=== PATIENT | male | born 1950 | race Caucasian/White ===

== ENCOUNTER 2022-05-28 15:59 | Inpatient (IN) | payer OTHER ==
[~2022-05-28] VITALS: Ht 167.6 cm; Wt 108.5 kg
[2022-05-28 16:16] VITALS: BP_SYST 134
[2022-05-28] MEDS ORDERED: VANCOMYCIN HCL 1,000 MG in NS 250 ML IV ONE (19:15)
[2022-05-28] MEDS ORDERED: NACL 0.9% 1,000 ML IV ONE (19:15)
--- NOTE | 2022-05-28 19:30 | NUR ---
Received report from JOANNA Rodriguez
[2022-05-28 19:44] LABS: BASOPHILS % (AUTO) 0.7 % (0.0-2.0); EOSINOPHILS # (AUTO) 0.1 K/uL (0.0-0.4); EOSINOPHILS % (AUTO) 2.9 % (0.0-4.0); HEMATOCRIT 35.9 % (36-54); HEMOGLOBIN 12.1 g/dL (14.0-18.0); LYMPHOCYTES % (AUTO) 20.8 % (20.5-51.5); MEAN CORPUSCULAR HEMOGLOBIN 33 pg (27-31); MEAN CORPUSCULAR HGB CONC 34 % (32-36); MEAN CORPUSCULAR VOLUME 97 fL (79.0-98.0); MONOCYTES # (AUTO) 0.5 K/uL (0.0-1.0); MONOCYTES % (AUTO) 9.6 % (1.7-9.3); NEUTROPHILS # (AUTO) 3.2 K/uL (1.8-7.7); PLATELET COUNT (AUTO) 104 K/uL (130-430); RED BLOOD CELL COUNT(AUTO) 3.71 MIL/uL (4.2-6.2); WHITE BLOOD COUNT (AUTO) 4.8 K/uL (4.8-10.8)
[2022-05-28] MEDS ORDERED: VANCOMYCIN HCL 1000 MG/VIAL IV ONE (19:59)
[2022-05-28 20:02] LABS: ANION GAP 7 (5-15); CALCIUM 8.6 mg/dL (8.4-11.0); CHLORIDE 110 mmol/L (98-107); CREATININE 1.12 mg/dL (0.55-1.30); GLUCOSE 96 mg/dL (70-99); UREA NITROGEN, BLOOD 24 mg/dL (8-21)
--- NOTE | 2022-05-28 20:10 | NUR ---
# 22 gauge angiocath placed to LAC. Use of asceptic technique. Opsite placed over site. Blood return noted. Blood for lab drawn from site. Flushed with 10 cc of normal saline. No evidence of infiltration noted. Patient tolerated well.
[2022-05-28 20:19] LABS: ALANINE AMINOTRANSFERASE 17 U/L (12-78); ALBUMIN 3.1 g/dL (3.4-4.8); ASPARTATE AMINOTRANSFERASE 25 U/L (10-37); TOTAL BILIRUBIN 0.9 mg/dL (0.0-1.0)
--- NOTE | 2022-05-28 21:20 | NUR ---
Patient will be admitted to care of [facility]. Admitted to TELE unit. Will go to room 117B. Belongings list completed. Complete and up to date summary report printed. SBAR report to be given at bedside with opportunity for questions.
[2022-05-28] MEDS ORDERED: ATOR20TA64 PO (21:23)
[2022-05-28] MEDS ORDERED: LACT10SO6 (21:23)
[2022-05-28] MEDS ORDERED: CARV6.2554 PO (21:23)
[2022-05-28] MEDS ORDERED: SILD50TA53 PO (21:23)
[2022-05-28] MEDS ORDERED: OMEP20CA15 PO (21:23)
[2022-05-28] MEDS ORDERED: HYDR-3927 PO (21:23)
[2022-05-28] MEDS ORDERED: FURO40TA5 PO (21:23)
[2022-05-28] MEDS ORDERED: AMLO5TAB92 PO (21:23)
[2022-05-28] MEDS ORDERED: ASPI-1155 PO (21:23)
[2022-05-28] MEDS ORDERED: POTA-197 PO (21:23)
[2022-05-28] MEDS ORDERED: PRED10TA PO (21:23)
[2022-05-28] MEDS ORDERED: LISI40TA13 PO (21:23)
[2022-05-28] MEDS ORDERED: METO-540 PO (21:23)
[2022-05-28 21:30] VITALS: BP_SYST 145
[2022-05-28] MEDS ORDERED: INSULIN REGULAR, HUMAN 100 UNITS/ML, 3 ML VIAL (humuLIN R) SUBCUT PRN (22:30)
[2022-05-28] MEDS: ASPIRIN 81 MG TAB.CHEW PO SCH (23:00)
[2022-05-28] MEDS ORDERED: METOPROLOL SUCCINATE 25 MG TAB.SR.24H (TOPROL XL) PO SCH (23:00)
[2022-05-28] MEDS: lisinopriL 20 MG TABLET PO SCH (23:00)
[2022-05-28] MEDS: ATORVASTATIN 20 MG TABLET PO SCH (23:00)
[2022-05-28] MEDS ORDERED: CARVEDILOL 6.25 MG TABLET (COREG) PO SCH (23:00)
[2022-05-28] MEDS: FUROSEMIDE 40 MG TABLET PO SCH (23:00)
[2022-05-28] MEDS: amLODIPine BESYLATE 5 MG TABLET PO SCH (23:00)
[2022-05-28] MEDS ORDERED: SILDENAFIL CITRATE PO SCH (23:00)
--- NOTE | 2022-05-29 03:39 | NUR ---
CONSULTATION PAGED/CALLED Reason for Consultation: CELLULITIS Person Who was Notified: [facility]CY Consulting Physician: BRANT Men'S Basketball Coach Specialty: Ordering Physician: AGUSTÍN CIFUENTES
[2022-05-29] MEDS ORDERED: OMEPRAZOLE Non-Formulary 20 MG CAPSULE.DR PO SCH (09:00)
[2022-05-29] MEDS: POTASSIUM CHLORIDE 20 MEQ TAB.PRT.SR PO SCH (10:30)
[2022-05-29] MEDS: lisinopriL 20 MG TABLET PO SCH (11:14)
[2022-05-29] MEDS: ASPIRIN 81 MG TAB.CHEW PO SCH (11:15)
[2022-05-29] MEDS: PANTOPRAZOLE SODIUM 40 MG TAB PO SCH (11:15)
[2022-05-29] MEDS: ATORVASTATIN 20 MG TABLET PO SCH (11:16)
[2022-05-29] MEDS: amLODIPine BESYLATE 5 MG TABLET PO SCH (11:16)
[2022-05-29] MEDS: HYDROcodone/ACETAMIN 10-325 MG TAB PO PRN ×4 (11:17→22:14)
[2022-05-29] MEDS: FUROSEMIDE 40 MG TABLET PO SCH (11:17)
[2022-05-29] MEDS: VANCOMYCIN HCL 1,000 MG in NS 250 ML IV SCH ×2 (11:40→22:19)
[2022-05-29 12:00] VITALS: BP_SYST 143
[2022-05-29] MEDS: FUROSEMIDE 20 MG/2 ML VIAL IVP SCH ×2 (15:29→22:12)
[2022-05-29 16:07] VITALS: BP_SYST 125
[2022-05-29 20:56] VITALS: BP_SYST 127
[2022-05-30 02:30] VITALS: BP_SYST 122
[2022-05-30] MEDS: FUROSEMIDE 20 MG/2 ML VIAL IVP SCH ×3 (07:09→21:48)
[2022-05-30 08:00] VITALS: BP_SYST 144
[2022-05-30] MEDS: HYDROcodone/ACETAMIN 10-325 MG TAB PO PRN ×4 (08:20→23:48)
[2022-05-30] MEDS: ATORVASTATIN 20 MG TABLET PO SCH (08:21)
[2022-05-30] MEDS: lisinopriL 20 MG TABLET PO SCH (08:21)
[2022-05-30] MEDS: ASPIRIN 81 MG TAB.CHEW PO SCH (08:21)
[2022-05-30] MEDS: PANTOPRAZOLE SODIUM 40 MG TAB PO SCH (08:22)
[2022-05-30] MEDS: POTASSIUM CHLORIDE 20 MEQ TAB.PRT.SR PO SCH (08:22)
[2022-05-30] MEDS: VANCOMYCIN HCL 1,000 MG in NS 250 ML IV SCH ×2 (08:23→20:56)
[2022-05-30 12:00] VITALS: BP_SYST 127
[2022-05-30] MEDS: PIPERACILLIN/TAZO 4.5GM/DEX-IS 100 ML IV SCH ×2 (14:50→23:06)
[2022-05-30 16:00] VITALS: BP_SYST 147
[2022-05-30 20:00] VITALS: BP_SYST 116
[2022-05-30 22:00] LABS: ANION GAP 5 (5-15); CALCIUM 7.8 mg/dL (8.4-11.0); CHLORIDE 108 mmol/L (98-107); CREATININE 1.65 mg/dL (0.55-1.30); GLUCOSE 114 mg/dL (70-99); UREA NITROGEN, BLOOD 23 mg/dL (8-21)
[2022-05-31 04:00] VITALS: BP_SYST 126
[2022-05-31] MEDS: PIPERACILLIN/TAZO 4.5GM/DEX-IS 100 ML IV SCH (06:06)
[2022-05-31] MEDS: FUROSEMIDE 20 MG/2 ML VIAL IVP SCH (06:06)
[2022-05-31] MEDS: HYDROcodone/ACETAMIN 10-325 MG TAB PO PRN ×2 (06:11→12:17)
[2022-05-31 07:00] LABS: BASOPHILS % (AUTO) 0.6 % (0.0-2.0); EOSINOPHILS # (AUTO) 0.2 K/uL (0.0-0.4); EOSINOPHILS % (AUTO) 3.4 % (0.0-4.0); HEMATOCRIT 34.2 % (36-54); HEMOGLOBIN 11.8 g/dL (14.0-18.0); LYMPHOCYTES # (AUTO) 0.8 K/uL (1.0-5.5); LYMPHOCYTES % (AUTO) 17.4 % (20.5-51.5); MEAN CORPUSCULAR HEMOGLOBIN 33 pg (27-31); MEAN CORPUSCULAR HGB CONC 35 % (32-36); MEAN CORPUSCULAR VOLUME 95 fL (79.0-98.0); MONOCYTES # (AUTO) 0.4 K/uL (0.0-1.0); MONOCYTES % (AUTO) 9.4 % (1.7-9.3); NEUTROPHILS # (AUTO) 3.1 K/uL (1.8-7.7); NEUTROPHILS % (AUTO) 69.2 % (40.0-70.0); PLATELET COUNT (AUTO) 86 K/uL (130-430); RED BLOOD CELL COUNT(AUTO) 3.61 MIL/uL (4.2-6.2); RED CELL DISTRIBUTION WIDTH 14.5 % (9.0-15.0); WHITE BLOOD COUNT (AUTO) 4.5 K/uL (4.8-10.8)
[2022-05-31 07:30] LABS: ANION GAP 7 (5-15); CALCIUM 7.9 mg/dL (8.4-11.0); CHLORIDE 107 mmol/L (98-107); CREATININE 1.54 mg/dL (0.55-1.30); GLUCOSE 90 mg/dL (70-99); UREA NITROGEN, BLOOD 21 mg/dL (8-21)
--- NOTE | 2022-05-31 07:30 | NUR ---
OPENING NOTE PT IN BED, RESTING. DENIES ANY PAIN, SOB, OR DISCOMFORT. IV SITE REMAIN INTACT AND PATENT. CALL LIGHT WITHIN REACH. SAFETY PRECAUTION IN PLACED. WILL CONT TO MONITOR
[2022-05-31] MEDS: ATORVASTATIN 20 MG TABLET PO SCH (08:34)
[2022-05-31] MEDS: ASPIRIN 81 MG TAB.CHEW PO SCH (08:34)
[2022-05-31] MEDS: lisinopriL 20 MG TABLET PO SCH (08:34)
[2022-05-31] MEDS: VANCOMYCIN HCL 1,000 MG in NS 250 ML IV SCH (08:35)
[2022-05-31] MEDS: PANTOPRAZOLE SODIUM 40 MG TAB PO SCH (08:35)
[2022-05-31] MEDS: POTASSIUM CHLORIDE 20 MEQ TAB.PRT.SR PO SCH (08:35)
--- NOTE | 2022-05-31 10:50 | NUR ---
NOTES; PT IN BED, NO S/S ACUTE DISTRESS NOTED. IV SITE REMAIN PATENT AND INTACT. ENCOURAGED PT TO USE CALL LIGHT FOR ASSISTANCE.
[2022-05-31 11:27] VITALS: BP_SYST 130
[2022-05-31] MEDS ORDERED: FURO-150 PO (11:27)
[2022-05-31] MEDS ORDERED: METO50TA7 PO (11:27)
[2022-05-31] MEDS ORDERED: VALS160T2 PO (11:27)
[2022-05-31] MEDS ORDERED: DOXY100C5 PO (11:29)
[2022-05-31] MEDS ORDERED: AMOX500C2 PO (11:34)
[2022-05-31] MEDS ORDERED: AMPICILLIN SODIUM 2 GM in NS 100 ML IV SCH (12:00)
[2022-05-31] MEDS ORDERED: SPIR50TA PO (12:42)
--- NOTE | 2022-05-31 13:30 | NUR ---
PAGED C/Keri CEE FOR HH ARRANGEMENT, LEFT VOICE MESSAGE
[2022-05-31 14:16] VITALS: BP_SYST 110
--- NOTE | 2022-05-31 15:30 | NUR ---
PAGED COLEMAN AGAIN, LEFT VOICE MESSAGE
[2022-05-31 17:01] VITALS: BP_SYST 126
--- NOTE | 2022-05-31 17:51 | NUR ---
Patient ready for discharge. All paperwork, education, and medication instructions provided. Patient IV removed. Patient aware of follow up with PCP. No distress noted. All belongings with patient. Ambulatory with steady gait to wheelchair and then personal vehicle. Patient's family member arrived by vehicle to pick patient up.
[2022-06-01] MEDS ORDERED: METOPROLOL SUCCINATE 50 MG TAB.SR.24H (TOPROL XL) PO SCH (09:00)
== END 2022-05-31 23:15 | disposition home health service (06) | DRG 291 ==
LOC: SED 15:59 → SMU 19:18
PROVIDERS: ADMIT Internal Medicine; ATTEND Internal Medicine
DX: I13.0 Hypertensive heart and chronic kidney disease with heart failure and stage 1 through stage 4 chronic kidney disease, or unspecified chronic kidney disease (principal); I50.41 Acute combined systolic (congestive) and diastolic (congestive) heart failure; L03.115 Cellulitis of right lower limb; E44.1 Mild protein-calorie malnutrition; L97.919 Non-pressure chronic ulcer of unspecified part of right lower leg with unspecified severity; N17.9 Acute kidney failure, unspecified; K74.60 Unspecified cirrhosis of liver; N18.9 Chronic kidney disease, unspecified; Z20.822 Contact with and (suspected) exposure to COVID-19; E78.5 Hyperlipidemia, unspecified; K21.9 Gastro-esophageal reflux disease without esophagitis; Z79.82 Long term (current) use of aspirin; Z79.891 Long term (current) use of opiate analgesic; Z79.899 Other long term (current) drug therapy; Z68.38 Body mass index [BMI] 38.0-38.9, adult
CPT/HCPCS: 36415; 80048; 80053; 80202; 82962; 83605; 85025; 85651-TC; 87040; 93005; 96365; 99285; J0290; J1940; J2543; J3370; J7050

== ENCOUNTER 2022-11-18 14:12 | Inpatient (IN) | payer OTHER ==
[~2022-11-18] VITALS: Ht 167.6 cm; Wt 107.5 kg
[~2022-11-18 14:12] MED LIST: AMOX500C2 PO; ASPI-1155 PO; ATOR20TA64 PO; DOXY100C5 PO; FURO-150 PO; HYDR-3927 PO; LACT10SO6; METO50TA7 PO; OMEP20CA15 PO; SILD50TA53 PO; SPIR50TA PO; VALS160T2 PO
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
[2022-11-18] MEDS ORDERED: MORPHINE 4 MG INJ. 4 MG/ML VIAL IVP ONE (14:45)
--- NOTE | 2022-11-18 14:51 | NUR ---
# 20 gauge angiocath placed to LAC. Use of asceptic technique. Opsite placed over site. Blood return noted. Blood for lab drawn from site. Flushed with 10 cc of normal saline. No evidence of infiltration noted. Patient tolerated well.
[2022-11-18] MEDS ORDERED: SILD20TA2 PO (14:56)
[2022-11-18] MEDS ORDERED: AMLO5TAB92 PO (14:56)
[2022-11-18] MEDS ORDERED: METO-540 PO (14:56)
[2022-11-18] MEDS ORDERED: POTA-197 PO (14:56)
[2022-11-18] MEDS ORDERED: FURO40TA5 PO (14:56)
[2022-11-18] MEDS ORDERED: SPIR25TA6 PO (14:56)
[2022-11-18] MEDS ORDERED: ATOR10TA68 PO (14:56)
[2022-11-18 15:25] VITALS: BP_SYST 140
[2022-11-18 15:43] LABS: ERYTHROCYTE SEDIMENTATION RATE 1 MM/HR (0-15)
[2022-11-18 15:44] LABS: BASOPHILS % (AUTO) 0.5 % (0.0-2.0); EOSINOPHILS % (AUTO) 0.8 % (0.0-4.0); HEMATOCRIT 37.1 % (36-54); HEMOGLOBIN 12.2 g/dL (14.0-18.0); LYMPHOCYTES # (AUTO) 0.7 K/uL (1.0-5.5); LYMPHOCYTES % (AUTO) 19.4 % (20.5-51.5); MEAN CORPUSCULAR HEMOGLOBIN 31 pg (27-31); MEAN CORPUSCULAR HGB CONC 33 % (32-36); MEAN CORPUSCULAR VOLUME 95 fL (79.0-98.0); MONOCYTES # (AUTO) 0.1 K/uL (0.0-1.0); MONOCYTES % (AUTO) 1.5 % (1.7-9.3); NEUTROPHILS # (AUTO) 2.8 K/uL (1.8-7.7); NEUTROPHILS % (AUTO) 77.8 % (40.0-70.0); PLATELET COUNT (AUTO) 118 K/uL (130-430); RED BLOOD CELL COUNT(AUTO) 3.92 MIL/uL (4.2-6.2); WHITE BLOOD COUNT (AUTO) 3.6 K/uL (4.8-10.8)
[2022-11-18 16:03] LABS: ANION GAP 12 (5-15); CALCIUM 8.4 mg/dL (8.4-11.0); CHLORIDE 103 mmol/L (98-107); CREATININE 1.82 mg/dL (0.55-1.30); GLUCOSE 107 mg/dL (70-99); UREA NITROGEN, BLOOD 42 mg/dL (8-21)
[2022-11-18 16:08] LABS: ALANINE AMINOTRANSFERASE 22 U/L (12-78); ALBUMIN 3.2 g/dL (3.4-4.8); ASPARTATE AMINOTRANSFERASE 22 U/L (10-37); TOTAL BILIRUBIN 1.3 mg/dL (0.0-1.0)
[2022-11-18 16:16] LABS: C-REACTIVE PROTEIN QUANT < 0.2 mg/dL (0-0.5)
--- NOTE | 2022-11-18 16:20 | NUR ---
Medicated per MD orders. IVF infusing with no s/s of infiltration at this time. Will cont to monitor
[2022-11-18] MEDS ORDERED: cefTRIAXone 1 GM in D5W 50 ML IV ONE (16:30)
[2022-11-18] MEDS ORDERED: NACL 0.9% 1,000 ML IV ONE (16:30)
[2022-11-18] MEDS ORDERED: VANCOMYCIN HCL 1,000 MG in NS 250 ML IV ONE (16:30)
[2022-11-18] MEDS ORDERED: cefTRIAXone 1 GM VIAL ONE (17:09)
--- NOTE | 2022-11-18 19:17 | NUR ---
REPORT TO JOANNA POZO FOR QUESTIONS.
--- NOTE | 2022-11-18 19:34 | NUR ---
PATIENT STABLE VITALS SIGNS IN NORMAL LIMITS NOT COMPLAINING OF PAIN AT THIS TIME
[2022-11-18] MEDS ORDERED: VANCOMYCIN HCL 1000 MG/VIAL IV ONE (19:56)
--- NOTE | 2022-11-18 20:28 | NUR ---
Admit bed requested Patient will be admitted to care of . Admitted to MS unit. Diagnosis CELLULITIS Inpatient (Yes or No) YES Observation (Yes or No) NO Orientation concerns or request close to nursing station (Yes or No) NO Covid Status N/A On vent or bipap NO Isolation requirements NO Needs a sitter NO From Home (Yes or if No enter name of facility) YES Requires Dialysis (Yes or No) NO Med Rec Completed (Yes of No) YES
[2022-11-18] MEDS: FUROSEMIDE 100 MG in D5W 90 ML IV ONE (20:58)
[2022-11-18] MEDS: PIPERACILLIN/TAZO 3.375 GM in NS 50 ML IV ONE ×2 (21:29→23:48)
--- NOTE | 2022-11-18 21:50 | NUR ---
NOTES; PRIMARY RN IS WITH ANOTHER PT , RECEIVED PT FROM ER , WITH THE DIAGNOSIS OF CELLULITIS . REPORT GIVEN BY ZIYAD MARSHALL , PER RN , HE IS WAITING FOR DR CARMONA TO CALL BACK TO VERIFY THE LASIX ORDER . PER RN THERE IS NO INDICATION FOR LASIX . WILL CALL MD AGAIN TO VERIFY THE ORDER .
--- NOTE | 2022-11-18 22:10 | NUR ---
RN NOTES: PT IS AWAKE , NOT IN ANY ACUTE DISTRESS; VITALS ARE STABLE ; NOTICED YASMIN LOWER LEG AND FOOT SWELLING , PITTING EDEMA , LEFT LEG NOTICED WITH SUTURES , REDNESS AND SWELLING , SUTURED AREA WITH MINIMAL SEROUS SANGUINOUS DRAINAGE ,WILL DO WOUND CULTURE .LATER . REPORT GIVEN TO PRIMARY RN . WAITING FOR DR CARMONA TO CALL BACK TO VERIFY THE ORDER .
[2022-11-18 22:15] VITALS: BP_SYST 115
--- NOTE | 2022-11-18 22:54 | NUR ---
MD CALLED BACK AFTER 4 TH PAGE: called back , informed MD that as per ER nurse ( Jaleel Tilley ) , pt has no indication for lasix drip ,ER nurse requested to call MD to verify order . MD stated " if the er nurse knows better ,let him treat the patient ". Md ordered to start the pt on lasix drip as per order . also notified md that pts bp is 102/62, hr is 94% , MD ordered albumin 25% 200 ml x 1 now and also ordered rea catheter . primary MD made aware of all new orders .
--- NOTE | 2022-11-18 22:55 | NUR ---
NEW IV: NEW IV STARTED TO THE RIGHT WRIST 22 G , X 1 ATTEMPT ;GOOD BLOOD RETURN NOTICED , IV FLUSHED WELL; NOTIFIED PRIMARY RN.
[2022-11-18] MEDS ORDERED: ALBUMIN HUMAN 25% 200 ML IV ONE (23:00)
--- NOTE | 2022-11-18 23:40 | NUR ---
Patient will be admitted to care of [facility]. Admitted to unit. Will go to room . Belongings list completed. Complete and up to date summary report printed. SBAR report to be given at bedside with opportunity for questions.
[2022-11-18] MEDS: DOXYCYCLINE HYCLATE 100 MG CAPSULE PO SCH (23:47)
[2022-11-18] MEDS: HYDROcodone/ACETAMIN 10-325 MG TAB PO PRN (23:47)
[2022-11-19] VITALS (7 sets, daily range): BP systolic 100–128
--- NOTE | 2022-11-19 00:05 | NUR ---
ATTEMPTED TO INSERT BRAGA CATH AFTER EXPLAINING TO THE PT , AFTER CLEANING , I TRIED TO INSERT THE BRAGA , ONLY INSERTED THE TIP OF THE CATHETER AND PT STARTED MOANING AND STATED ITS HURTING , AND STAINING , REQUESTED PT TO TAKE DEEP BREATH AND RELAX SO IT WOULD BE EASY TO INSERT , PT STATED ITS GOING TO HURT ME , I DONT WANT IT . EDUCATED PT THAT HIS OUTPUT NEEDS TO BE MONITORED SINCE PT IS GOING TO BE ON LASIX DRIP.PT STATED HE WILL USE THE URINAL AND VOID ,WONT PEE IN BED ANYMORE .PRIMARY RN WAS AT BEDSIDE DURING THE CONVERSATION .
[2022-11-19] MEDS: FUROSEMIDE 100 MG in D5W 90 ML IV ONE (02:16)
--- NOTE | 2022-11-19 04:27 | NUR ---
CONSULTATION PAGED/CALLED Reason for Consultation: CIRRHOSIS Person Who was Notified: VIGNESH Consulting Physician: BRANT Tank Truck Operator Specialty: ID Ordering Physician: MATHEW
--- NOTE | 2022-11-19 04:30 | NUR ---
BM/Pericare Pt had a large formed BM in bedpan. Pericare provided with REPRODUCTION ORDER PROCESSOR assist. Sp leg elevated on pillow.
--- NOTE | 2022-11-19 04:50 | NUR ---
CONSULTATION PAGED/CALLED Reason for Consultation: CIRRHOSIS Person Who was Notified: VIGNESH Consulting Physician: MARCY Horizontal Boring Mill Operator Specialty: GI Ordering Physician: MATHEW
--- NOTE | 2022-11-19 05:54 | NUR ---
Closing notes Pt asleep, no s/s distress noted. Lasix drip at 5cc/hr infusing R.wrist 22G clear and patent. Sp legs maintained floated on pillow. Call light within reach. Bed low, locked siderails up x3, alarm on. To endorse to AM nurse.
[2022-11-19 06:04] LABS: BASOPHILS % (AUTO) 0.2 % (0.0-2.0); EOSINOPHILS # (AUTO) 0.1 K/uL (0.0-0.4); HEMATOCRIT 33.5 % (36-54); LYMPHOCYTES # (AUTO) 0.8 K/uL (1.0-5.5); LYMPHOCYTES % (AUTO) 11.4 % (20.5-51.5); MEAN CORPUSCULAR HEMOGLOBIN 32 pg (27-31); MEAN CORPUSCULAR HGB CONC 33 % (32-36); MEAN CORPUSCULAR VOLUME 97 fL (79.0-98.0); MONOCYTES # (AUTO) 0.4 K/uL (0.0-1.0); NEUTROPHILS # (AUTO) 5.8 K/uL (1.8-7.7); NEUTROPHILS % (AUTO) 82.4 % (40.0-70.0); PLATELET COUNT (AUTO) 64 K/uL (130-430); RED BLOOD CELL COUNT(AUTO) 3.47 MIL/uL (4.2-6.2); RED CELL DISTRIBUTION WIDTH 17.2 % (9.0-15.0)
[2022-11-19 06:27] LABS: ANION GAP 13 (5-15); CALCIUM 7.9 mg/dL (8.4-11.0); CHLORIDE 105 mmol/L (98-107); CREATININE 2.01 mg/dL (0.55-1.30); GLUCOSE 98 mg/dL (70-99); UREA NITROGEN, BLOOD 47 mg/dL (8-21)
[2022-11-19] MEDS: SPIRONOLACTONE 25 MG TABLET (ALDACTONE) PO SCH (08:42)
[2022-11-19] MEDS: LOSARTAN POTASSIUM 50 MG TABLET (COZAAR) PO SCH (08:43)
[2022-11-19] MEDS: DOXYCYCLINE HYCLATE 100 MG CAPSULE PO SCH (08:43)
[2022-11-19] MEDS: ASPIRIN 81 MG TAB.CHEW PO SCH (08:43)
[2022-11-19] MEDS: POTASSIUM CHLORIDE 20 MEQ TAB.PRT.SR PO SCH (08:43)
[2022-11-19] MEDS: METOPROLOL SUCCINATE 25 MG TAB.SR.24H (TOPROL XL) PO SCH (08:44)
[2022-11-19] MEDS: PANTOPRAZOLE SODIUM 40 MG TAB PO SCH (08:44)
[2022-11-19] MEDS: SILDENAFIL CITRATE 20 MG TABLET PO SCH ×3 (08:54→21:18)
[2022-11-19] MEDS: HYDROcodone/ACETAMIN 10-325 MG TAB PO PRN ×3 (08:55→23:34)
[2022-11-19] MEDS ORDERED: SPIRONOLACTONE 50 MG TABLET (ALDACTONE) PO SCH (09:00)
[2022-11-19] MEDS ORDERED: OMEPRAZOLE Non-Formulary 20 MG CAPSULE.DR PO SCH (09:00)
[2022-11-19] MEDS ORDERED: METOPROLOL SUCCINATE 50 MG TAB.SR.24H (TOPROL XL) PO SCH (09:00)
[2022-11-19] MEDS ORDERED: VALSARTAN Non-Formulary 160 MG TABLET PO SCH (09:00)
[2022-11-19 09:56] LABS: INR 1.2 (0.80-1.20); PROTHROMBIN TIME 12.1 SECS (9.5-12.5)
[2022-11-19] MEDS ORDERED: FUROSEMIDE 20 MG/2 ML VIAL IVP ONE (10:45)
[2022-11-19] MEDS: FUROSEMIDE 20 MG/2 ML VIAL IVP SCH ×3 (12:00→23:34)
[2022-11-19] MEDS: VANCOMYCIN HCL 1,250 MG in NS 250 ML IV SCH (14:00)
[2022-11-19] MEDS: AMPICILLIN SODIUM 2 GM in NS 100 ML IV SCH ×2 (18:12→23:36)
--- NOTE | 2022-11-20 | NUR ---
Hourly Rounding patient Resting HOB elevated call booker given to patient Reposition & Turning on schedule also tolerated / .
[2022-11-20 00:25] VITALS: BP_SYST 112
--- NOTE | 2022-11-20 02:01 | NUR ---
NORCO 10 / 325 MG po administer for acute pain & helpful Patient Resting chest movement symmetrical / .
[2022-11-20] MEDS: FUROSEMIDE 20 MG/2 ML VIAL IVP SCH ×3 (06:32→18:14)
[2022-11-20] MEDS: AMPICILLIN SODIUM 2 GM in NS 100 ML IV SCH ×3 (06:32→18:14)
[2022-11-20 06:42] LABS: ANION GAP 8 (5-15); CALCIUM 8.1 mg/dL (8.4-11.0); CHLORIDE 106 mmol/L (98-107); CREATININE 1.73 mg/dL (0.55-1.30); GLUCOSE 79 mg/dL (70-99); UREA NITROGEN, BLOOD 51 mg/dL (8-21)
--- NOTE | 2022-11-20 07:30 | NUR ---
Initial note: report received from Tristen. patient is awake alert x4. Call light in reach. Bed in the lowest position and side rails x2 up. Bed alarm is on. Assessment is done and vital checked. Complained pain on bilateral lower legs and will give pain medication and continue patient care.
[2022-11-20 07:41] LABS: EOSINOPHILS # (AUTO) 0.1 K/uL (0.0-0.4); LYMPHOCYTES # (AUTO) 0.5 K/uL (1.0-5.5); MEAN CORPUSCULAR HEMOGLOBIN 32 pg (27-31); MEAN CORPUSCULAR HGB CONC 33 % (32-36); MEAN CORPUSCULAR VOLUME 96 fL (79.0-98.0)
[2022-11-20 08:00] VITALS: BP_SYST 106
[2022-11-20] MEDS: LOSARTAN POTASSIUM 50 MG TABLET (COZAAR) PO SCH (09:14)
[2022-11-20] MEDS: SILDENAFIL CITRATE 20 MG TABLET PO SCH ×2 (09:14→14:23)
[2022-11-20] MEDS: POTASSIUM CHLORIDE 20 MEQ TAB.PRT.SR PO SCH (09:15)
[2022-11-20] MEDS: HYDROcodone/ACETAMIN 10-325 MG TAB PO PRN ×2 (09:15→18:25)
[2022-11-20] MEDS: SPIRONOLACTONE 25 MG TABLET (ALDACTONE) PO SCH (09:16)
[2022-11-20] MEDS: PANTOPRAZOLE SODIUM 40 MG TAB PO SCH (09:16)
[2022-11-20] MEDS: METOPROLOL SUCCINATE 25 MG TAB.SR.24H (TOPROL XL) PO SCH (09:16)
[2022-11-20] MEDS: ASPIRIN 81 MG TAB.CHEW PO SCH (09:17)
[2022-11-20 09:57] LABS: WHITE BLOOD COUNT (AUTO) 10.4 K/uL (4.8-10.8)
[2022-11-20 09:58] LABS: HEMATOCRIT 33.1 % (36-54); RED BLOOD CELL COUNT(AUTO) 3.46 MIL/uL (4.2-6.2)
[2022-11-20 09:59] LABS: RED CELL DISTRIBUTION WIDTH 17.8 % (9.0-15.0)
[2022-11-20 10:04] LABS: BASOPHILS % (AUTO) 0.2 % (0.0-2.0); EOSINOPHILS % (AUTO) 0.9 % (0.0-4.0); LYMPHOCYTES % (AUTO) 4.8 % (20.5-51.5); MONOCYTES # (AUTO) 0.6 K/uL (0.0-1.0); MONOCYTES % (AUTO) 5.6 % (1.7-9.3); NEUTROPHILS # (AUTO) 9.2 K/uL (1.8-7.7); NEUTROPHILS % (AUTO) 88.5 % (40.0-70.0)
[2022-11-20 10:06] LABS: PLATELET COUNT (AUTO) 48 K/uL (130-430)
--- NOTE | 2022-11-20 10:13 | NUR ---
Note: Lab called for platelet count 48. dr. Sellers is here to see patient and reported the result. Stated to monitor if patient is not actively bleeding and no new order for now.
--- NOTE | 2022-11-20 10:30 | NUR ---
>>>PT NOTES<<< PATIENT PREFERRED NOT TO PARTICIPATE WITH PT EVAL AND TREATMENT TODAY DUE TO C/O PAIN AND SWELLING ON LEFT LOWER EXTREMITY. WILL FOLLOW UP ON 11/22/22.
--- NOTE | 2022-11-20 11:42 | NUR ---
Note: lab called for blood culture gram positive Rods. Reported to Dr. Sellers she is here to see patient. no new order for now.
[2022-11-20 12:07] LABS: HEPATITIS A AB, IgM Negative (Negative); HEPATITIS B CORE AB, IgM Negative (Negative); HEPATITIS B SURFACE AG Negative (Negative)
[2022-11-20] MEDS: MORPHINE 2 MG/ML INJ. SYRINGE IVP PRN ×2 (12:13→22:12)
--- NOTE | 2022-11-20 12:50 | NUR ---
Note: Dr. Sellers is here to see patient. made aware of the critical lab result and plan of care discussed by Dr. Sellers to patient and family.
[2022-11-20 13:37] VITALS: BP_SYST 118
[2022-11-20] MEDS: VANCOMYCIN HCL 1,250 MG in NS 250 ML IV SCH (14:24)
[2022-11-20 16:00] VITALS: BP_SYST 116
[2022-11-20] MEDS ORDERED: ALBUTEROL MDI INHALATION 8 GM INH INH PRN (16:15)
[2022-11-20] MEDS: ALBUTEROL SULFATE 0.083% 2.5 MG/3 ML VIAL.NEB INH PRN (19:20)
--- NOTE | 2022-11-20 19:29 | NUR ---
Closing note: reported to Tristen. Assisted patient for bedpan and bowel movement x1. No pain or discomfort complained at this time. Endorse to continue patient care.
[2022-11-20 20:30] VITALS: BP_SYST 129
--- NOTE | 2022-11-20 22:32 | NUR ---
MOPHINE SULFATE 1 MG IVP administer for acute pain assist encourage position change also helpful / .
[2022-11-21 00:05] VITALS: BP_SYST 103
[2022-11-21] MEDS: AMPICILLIN SODIUM 2 GM in NS 100 ML IV SCH ×5 (00:59→23:46)
[2022-11-21] MEDS: FUROSEMIDE 20 MG/2 ML VIAL IVP SCH ×5 (01:00→23:47)
[2022-11-21] MEDS: SILDENAFIL CITRATE 20 MG TABLET PO SCH ×4 (01:39→20:58)
--- NOTE | 2022-11-21 01:44 | NUR ---
Hourly Rounding patient awake assist for use of urinal LASIX 20 MG ivp given no complaints made .
[2022-11-21] MEDS: HYDROcodone/ACETAMIN 10-325 MG TAB PO PRN ×3 (06:29→21:04)
[2022-11-21 07:04] LABS: ALANINE AMINOTRANSFERASE 15 U/L (12-78); ALBUMIN 2.1 g/dL (3.4-4.8); ANION GAP 7 (5-15); ASPARTATE AMINOTRANSFERASE 21 U/L (10-37); CHLORIDE 101 mmol/L (98-107); CREATININE 1.62 mg/dL (0.55-1.30); GLUCOSE 101 mg/dL (70-99); TOTAL BILIRUBIN 1.5 mg/dL (0.0-1.0); UREA NITROGEN, BLOOD 42 mg/dL (8-21)
[2022-11-21 07:09] LABS: CALCIUM 8.1 mg/dL (8.4-11.0)
--- NOTE | 2022-11-21 07:30 | NUR ---
Initial note: report received from Tristen. Patient is awake alert x4. call light in reach. bed in the lowest position and side rails x3 up. Assessment is done and vital checked. Will continue patient care.
[2022-11-21 08:00] VITALS: BP_SYST 110
[2022-11-21] MEDS: ASPIRIN 81 MG TAB.CHEW PO SCH (09:07)
[2022-11-21] MEDS: POTASSIUM CHLORIDE 20 MEQ TAB.PRT.SR PO SCH (09:07)
[2022-11-21] MEDS: PANTOPRAZOLE SODIUM 40 MG TAB PO SCH (09:08)
[2022-11-21] MEDS: LOSARTAN POTASSIUM 50 MG TABLET (COZAAR) PO SCH (09:09)
[2022-11-21] MEDS: SPIRONOLACTONE 25 MG TABLET (ALDACTONE) PO SCH (09:09)
[2022-11-21] MEDS: METOPROLOL SUCCINATE 25 MG TAB.SR.24H (TOPROL XL) PO SCH (09:10)
[2022-11-21] MEDS: MORPHINE 2 MG/ML INJ. SYRINGE IVP PRN (09:20)
[2022-11-21 10:48] LABS: BASOPHILS % (AUTO) 0.1 % (0.0-2.0); EOSINOPHILS # (AUTO) 0.2 K/uL (0.0-0.4); EOSINOPHILS % (AUTO) 1.3 % (0.0-4.0); HEMATOCRIT 32.3 % (36-54); HEMOGLOBIN 10.7 g/dL (14.0-18.0); LYMPHOCYTES # (AUTO) 0.5 K/uL (1.0-5.5); LYMPHOCYTES % (AUTO) 4.3 % (20.5-51.5); MEAN CORPUSCULAR HEMOGLOBIN 31 pg (27-31); MEAN CORPUSCULAR HGB CONC 33 % (32-36); MEAN CORPUSCULAR VOLUME 94 fL (79.0-98.0); MONOCYTES # (AUTO) 0.6 K/uL (0.0-1.0); MONOCYTES % (AUTO) 5.1 % (1.7-9.3); NEUTROPHILS # (AUTO) 10.8 K/uL (1.8-7.7); NEUTROPHILS % (AUTO) 89.2 % (40.0-70.0); PLATELET COUNT (AUTO) 57 K/uL (130-430); RED BLOOD CELL COUNT(AUTO) 3.43 MIL/uL (4.2-6.2); RED CELL DISTRIBUTION WIDTH 16.8 % (9.0-15.0); WHITE BLOOD COUNT (AUTO) 12.1 K/uL (4.8-10.8)
[2022-11-21 10:59] LABS: ALANINE AMINOTRANSFERASE 16 U/L (12-78); ANION GAP 8 (5-15); ASPARTATE AMINOTRANSFERASE 19 U/L (10-37); CALCIUM 8.1 mg/dL (8.4-11.0); CHLORIDE 100 mmol/L (98-107); CREATININE 1.67 mg/dL (0.55-1.30); GLUCOSE 129 mg/dL (70-99); TOTAL BILIRUBIN 1.4 mg/dL (0.0-1.0); UREA NITROGEN, BLOOD 43 mg/dL (8-21)
[2022-11-21 11:57] VITALS: BP_SYST 97
--- NOTE | 2022-11-21 13:00 | NUR ---
Note: Patient is resting in bed. No pain or discomfort. is at the bedside. Will continue patient care.
[2022-11-21] MEDS: VANCOMYCIN HCL 1,250 MG in NS 250 ML IV SCH (14:43)
--- NOTE | 2022-11-21 15:30 | NUR ---
CONSULTATION Reason for Consultation: POSSIBLE I & D OF LLE BLISTER Person Who was Notified: DR. CARLIN HERE AND INFORMED Consulting Physician: DR. BORDEN Day Care Worker Specialty: SURGERY Ordering Physician: DR. SALDIVAR
--- NOTE | 2022-11-21 16:00 | NUR ---
Note: Dr. Cisse is here to see patient. stated will just let the blister pop by itself and no surgery is needed.
[2022-11-21 17:14] VITALS: BP_SYST 100
--- NOTE | 2022-11-21 19:36 | NUR ---
Closing note: Reported to Dakota. Patient is awake alert x4. Resting in bed. No pain or discomfort at this time. Endorse to continue patient care.
--- NOTE | 2022-11-21 19:50 | NUR ---
INITIAL NOTES; pt. sleeping when received. no acute distress. bed alarm on. call light within reach.
[2022-11-21 21:00] VITALS: BP_SYST 111
--- NOTE | 2022-11-21 21:15 | NUR ---
NOTES: pt. awakened, VS checked. due medications given and also pain medication for c/o left leg pain. repositioned self. IV site on left and rt. hand. call light within reach. voided per urinal. noted both legs swollen but more than left leg and skin reddened.
--- NOTE | 2022-11-21 23:57 | NUR ---
NOTES: pt. awakened for due medications. no further complaint.
[2022-11-22 00:05] VITALS: BP_SYST 101
--- NOTE | 2022-11-22 02:00 | NUR ---
NOTES: condition observed.
--- NOTE | 2022-11-22 05:00 | NUR ---
NOTES: complete am care/nikolay care done. repositioned.
[2022-11-22] MEDS: HYDROcodone/ACETAMIN 10-325 MG TAB PO PRN (05:08)
--- NOTE | 2022-11-22 05:10 | NUR ---
NOTES: medicated with [place] po for c/o left leg pain. keep elevated with pillow. IV antibiotic started to infuse.
[2022-11-22] MEDS: AMPICILLIN SODIUM 2 GM in NS 100 ML IV SCH ×3 (05:20→18:18)
[2022-11-22] MEDS: FUROSEMIDE 20 MG/2 ML VIAL IVP SCH ×3 (05:22→18:18)
[2022-11-22 05:56] LABS: BASOPHILS % (AUTO) 0.2 % (0.0-2.0); EOSINOPHILS # (AUTO) 0.2 K/uL (0.0-0.4); EOSINOPHILS % (AUTO) 1.5 % (0.0-4.0); HEMOGLOBIN 10.9 g/dL (14.0-18.0); LYMPHOCYTES # (AUTO) 0.6 K/uL (1.0-5.5); LYMPHOCYTES % (AUTO) 5.7 % (20.5-51.5); MEAN CORPUSCULAR HEMOGLOBIN 32 pg (27-31); MEAN CORPUSCULAR HGB CONC 34 % (32-36); MEAN CORPUSCULAR VOLUME 94 fL (79.0-98.0); MONOCYTES # (AUTO) 0.6 K/uL (0.0-1.0); MONOCYTES % (AUTO) 5.6 % (1.7-9.3); NEUTROPHILS # (AUTO) 9.2 K/uL (1.8-7.7); PLATELET COUNT (AUTO) 58 K/uL (130-430); RED BLOOD CELL COUNT(AUTO) 3.43 MIL/uL (4.2-6.2); RED CELL DISTRIBUTION WIDTH 16.9 % (9.0-15.0); WHITE BLOOD COUNT (AUTO) 10.5 K/uL (4.8-10.8)
[2022-11-22 06:36] LABS: ANION GAP 7 (5-15); CALCIUM 7.8 mg/dL (8.4-11.0); CHLORIDE 99 mmol/L (98-107); CREATININE 1.62 mg/dL (0.55-1.30); GLUCOSE 116 mg/dL (70-99); UREA NITROGEN, BLOOD 49 mg/dL (8-21)
--- NOTE | 2022-11-22 06:49 | NUR ---
CLOSING NOTES; pt. noted relief. resting. IV site patent. left leg elevated. needs attended. for further care and assistance. will endorse to incoming shift.
[2022-11-22 08:00] VITALS: BP_SYST 106
[2022-11-22 08:06] LABS: AFP, TUMOR MARKER <1.8 ng/mL (0.0-8.4); ANTI-STREPTOLYSIN O AB <20.0 IU/mL (0.0-200.0)
[2022-11-22] MEDS: PANTOPRAZOLE SODIUM 40 MG TAB PO SCH (08:47)
[2022-11-22] MEDS: SPIRONOLACTONE 25 MG TABLET (ALDACTONE) PO SCH (08:47)
[2022-11-22] MEDS: POTASSIUM CHLORIDE 20 MEQ TAB.PRT.SR PO SCH (08:47)
[2022-11-22] MEDS: ASPIRIN 81 MG TAB.CHEW PO SCH (08:48)
[2022-11-22] MEDS: METOPROLOL SUCCINATE 25 MG TAB.SR.24H (TOPROL XL) PO SCH (08:48)
[2022-11-22] MEDS: LOSARTAN POTASSIUM 50 MG TABLET (COZAAR) PO SCH (08:49)
--- NOTE | 2022-11-22 10:00 | NUR ---
patient c/o 10/10 pain in left leg, prn morphine administered per emar
[2022-11-22] MEDS: MORPHINE 2 MG/ML INJ. SYRINGE IVP PRN ×2 (10:07→15:59)
[2022-11-22] MEDS: SILDENAFIL CITRATE 20 MG TABLET PO SCH ×3 (11:41→21:00)
--- NOTE | 2022-11-22 11:51 | NUR ---
1200 lasix dose held due to decreased bp 100/57
[2022-11-22 16:00] VITALS: BP_SYST 122
[2022-11-22] MEDS ORDERED: POLYETHYLENE GLYCOL 3350, 17 GM/ POWD.PACK PO ONE (16:45)
--- NOTE | 2022-11-22 17:18 | NUR ---
>>>PT NOTES<<< PATIENT REFUSED PT TODAY, STATES HE IS NOT UP TO IT DUE TO LEFT LEG SWELLING AND PAIN. WILL FOLLOW UP TOMORROW, 11/23/22.
[2022-11-22] MEDS: VANCOMYCIN HCL 1,000 MG in NS 250 ML IV SCH (18:32)
[2022-11-22 20:00] VITALS: BP_SYST 105
[2022-11-23] VITALS: BP_SYST 115
[2022-11-23] MEDS: HYDROcodone/ACETAMIN 10-325 MG TAB PO PRN ×3 (00:06→18:43)
[2022-11-23] MEDS: AMPICILLIN SODIUM 2 GM in NS 100 ML IV SCH ×5 (00:07→23:31)
[2022-11-23] MEDS: FUROSEMIDE 20 MG/2 ML VIAL IVP SCH ×5 (00:11→23:41)
--- NOTE | 2022-11-23 06:30 | NUR ---
Mr Crawford has been assessed as indicated. His LLE remains red and warm the blister/cyst to that area remans intact. He has been noted to be both pleasant and cooperative. He has been successfully treated for pain 2x this shift. IV antibiotics have been well tolerated. He is presently resting quietly at this time
[2022-11-23] MEDS: MORPHINE 2 MG/ML INJ. SYRINGE IVP PRN ×3 (06:31→22:13)
[2022-11-23 06:45] LABS: HEMATOCRIT 33.1 % (36-54); HEMOGLOBIN 11.3 g/dL (14.0-18.0); MEAN CORPUSCULAR HEMOGLOBIN 32 pg (27-31); MEAN CORPUSCULAR HGB CONC 34 % (32-36); MEAN CORPUSCULAR VOLUME 93 fL (79.0-98.0); PLATELET COUNT (AUTO) 80 K/uL (130-430); RED BLOOD CELL COUNT(AUTO) 3.57 MIL/uL (4.2-6.2); RED CELL DISTRIBUTION WIDTH 16.8 % (9.0-15.0); WHITE BLOOD COUNT (AUTO) 7.9 K/uL (4.8-10.8)
--- NOTE | 2022-11-23 07:00 | NUR ---
Handoff has been given to Karen
[2022-11-23 07:41] LABS: ANION GAP 5 (5-15); CALCIUM 8.2 mg/dL (8.4-11.0); CHLORIDE 100 mmol/L (98-107); CREATININE 1.48 mg/dL (0.55-1.30); GLUCOSE 97 mg/dL (70-99); UREA NITROGEN, BLOOD 54 mg/dL (8-21)
[2022-11-23 07:53] VITALS: BP_SYST 120
--- NOTE | 2022-11-23 08:00 | NUR ---
START OF SHIFT Pt sitting up in bed eating his breakfast. IV in LAC intact and patent. No SOB/resp distress or severe pain/discomfort noted at this time. Bed in low position and bed alarm on. Side rails raised. No needs noted. Call light within reach.
[2022-11-23] MEDS: POTASSIUM CHLORIDE 20 MEQ TAB.PRT.SR PO SCH (08:27)
[2022-11-23] MEDS: SPIRONOLACTONE 25 MG TABLET (ALDACTONE) PO SCH (08:28)
[2022-11-23] MEDS: LOSARTAN POTASSIUM 50 MG TABLET (COZAAR) PO SCH (08:28)
[2022-11-23] MEDS: METOPROLOL SUCCINATE 25 MG TAB.SR.24H (TOPROL XL) PO SCH (08:28)
[2022-11-23] MEDS: ASPIRIN 81 MG TAB.CHEW PO SCH (08:28)
[2022-11-23] MEDS: PANTOPRAZOLE SODIUM 40 MG TAB PO SCH (08:29)
[2022-11-23] MEDS: POLYETHYLENE GLYCOL 3350, 17 GM/ POWD.PACK PO SCH (08:29)
[2022-11-23] MEDS: SILDENAFIL CITRATE 20 MG TABLET PO SCH ×3 (08:42→21:28)
[2022-11-23 10:36] VITALS: BP_SYST 120
[2022-11-23 11:19] VITALS: BP_SYST 121
[2022-11-23 13:52] LABS: LYMPHOCYTES % (MANUAL) 8 % (20-46); MONOCYTES % (MANUAL) 1 % (0-11)
[2022-11-23 14:25] LABS: BASOPHILS % (MANUAL) 0 % (0-2); EOSINOPHILS % (MANUAL) 0 % (0-7)
[2022-11-23 15:09] VITALS: BP_SYST 97
--- NOTE | 2022-11-23 15:44 | NUR ---
P.T. NOTES P.T. EVAL COMPLETED; REFER TO EVAL FOR DETAILS.
[2022-11-23] MEDS: VANCOMYCIN HCL 1,000 MG in NS 250 ML IV SCH (18:38)
--- NOTE | 2022-11-23 18:50 | NUR ---
END OF SHIFT Pt was checked on q1' and PRN all shift for needs and care. Pt was maintained with safety precautions all shift. Pt log rolled with pt doing the turn side to side with minimal assist. Pt's IV in left hand intact and patent infusing IVPB antibiotics well. Pt's left leg elevated on pillows and no need noted. Blisters on left lower leg on lateral side of LLE intact and no open areas noted at this time. Pt's bed in low position and bed alarm on. Side rails raised and no needs noted at this time. Call light within reach.
--- NOTE | 2022-11-23 19:20 | NUR ---
INITIAL NOTES; endorsed by day shift with DX cellulitis of lower extremities evelyn left leg. no distress. just medicated for pain . call light within reach.
[2022-11-23 20:00] VITALS: BP_SYST 102
--- NOTE | 2022-11-23 22:23 | NUR ---
NOTES: called for c/o pain on left leg, medicated with IV Morphine as ordered. kept left leg elevated with pillow, big blister noted.ski red and swollen.
[2022-11-24 00:03] VITALS: BP_SYST 101
--- NOTE | 2022-11-24 00:15 | NUR ---
NOTES; pt. awakened for due medication. bed rest maintained.
--- NOTE | 2022-11-24 02:45 | NUR ---
NOTES: pt. been sleeping. IVF TKO. no further complaints.
--- NOTE | 2022-11-24 04:00 | NUR ---
NOTES: condition unchanged.
[2022-11-24] MEDS: AMPICILLIN SODIUM 2 GM in NS 100 ML IV SCH ×3 (05:58→17:11)
[2022-11-24] MEDS: FUROSEMIDE 20 MG/2 ML VIAL IVP SCH ×3 (05:59→17:10)
--- NOTE | 2022-11-24 06:05 | NUR ---
NOTES: medicated for c/o left leg pain and due medications given.
[2022-11-24] MEDS: HYDROcodone/ACETAMIN 10-325 MG TAB PO PRN ×2 (06:06→17:10)
--- NOTE | 2022-11-24 06:54 | NUR ---
CLOSING NOTES; for further assistance. resting. will endorse to incoming shift. IV site patent. call light at bedside.
[2022-11-24 06:56] LABS: BASOPHILS % (AUTO) 0.5 % (0.0-2.0); EOSINOPHILS # (AUTO) 0.2 K/uL (0.0-0.4); EOSINOPHILS % (AUTO) 3.2 % (0.0-4.0); HEMATOCRIT 34.4 % (36-54); HEMOGLOBIN 11.5 g/dL (14.0-18.0); LYMPHOCYTES # (AUTO) 0.7 K/uL (1.0-5.5); LYMPHOCYTES % (AUTO) 10.6 % (20.5-51.5); MEAN CORPUSCULAR HEMOGLOBIN 31 pg (27-31); MEAN CORPUSCULAR HGB CONC 33 % (32-36); MEAN CORPUSCULAR VOLUME 94 fL (79.0-98.0); MONOCYTES # (AUTO) 0.6 K/uL (0.0-1.0); MONOCYTES % (AUTO) 8.8 % (1.7-9.3); NEUTROPHILS # (AUTO) 5.3 K/uL (1.8-7.7); NEUTROPHILS % (AUTO) 76.9 % (40.0-70.0); PLATELET COUNT (AUTO) 102 K/uL (130-430); RED BLOOD CELL COUNT(AUTO) 3.67 MIL/uL (4.2-6.2); RED CELL DISTRIBUTION WIDTH 17.5 % (9.0-15.0); WHITE BLOOD COUNT (AUTO) 6.8 K/uL (4.8-10.8)
[2022-11-24 07:02] LABS: ANION GAP 6 (5-15); CALCIUM 8.1 mg/dL (8.4-11.0); CHLORIDE 101 mmol/L (98-107); CREATININE 1.48 mg/dL (0.55-1.30); GLUCOSE 106 mg/dL (70-99); UREA NITROGEN, BLOOD 61 mg/dL (8-21)
[2022-11-24 07:49] VITALS: BP_SYST 114
--- NOTE | 2022-11-24 08:00 | NUR ---
Start of shift Pt sitting up in bed eating his breakfast, left leg elevated on pillow. Bed in low position and bed alarm on. Side rails raised and no needs noted at this time. Call light within reach.
[2022-11-24] MEDS: ASPIRIN 81 MG TAB.CHEW PO SCH (08:15)
[2022-11-24] MEDS: LOSARTAN POTASSIUM 50 MG TABLET (COZAAR) PO SCH (08:15)
[2022-11-24] MEDS: PANTOPRAZOLE SODIUM 40 MG TAB PO SCH (08:15)
[2022-11-24] MEDS: SILDENAFIL CITRATE 20 MG TABLET PO SCH ×3 (08:15→22:12)
[2022-11-24] MEDS: POTASSIUM CHLORIDE 20 MEQ TAB.PRT.SR PO SCH (08:15)
[2022-11-24] MEDS: METOPROLOL SUCCINATE 25 MG TAB.SR.24H (TOPROL XL) PO SCH (08:16)
[2022-11-24] MEDS: SPIRONOLACTONE 25 MG TABLET (ALDACTONE) PO SCH (08:16)
[2022-11-24] MEDS: POLYETHYLENE GLYCOL 3350, 17 GM/ POWD.PACK PO SCH (08:17)
--- NOTE | 2022-11-24 09:20 | NUR ---
PT Pt working with PT on getting in and OOB - pt also ambulating to BS chair 2X. Tolerated ambulation well. Pt back in bed and left leg elevated on pillow. Call light within reach.
[2022-11-24] MEDS: MORPHINE 2 MG/ML INJ. SYRINGE IVP PRN (09:53)
[2022-11-24 11:34] VITALS: BP_SYST 99
[2022-11-24] MEDS ORDERED: MORPHINE 4 MG INJ. 4 MG/ML VIAL IVP ONE (11:45)
--- NOTE | 2022-11-24 11:45 | NUR ---
Note Pt stated he has pain of 10/[address] Sellers was called and order for Morphine 4mg IVP was received.
--- NOTE | 2022-11-24 14:49 | NUR ---
Note Pt resting in bed. No needs noted at this time. Call light within reach.
--- NOTE | 2022-11-24 14:55 | NUR ---
PHYSICAL THERAPY CO-SIGN The Physical Therapy Progress Notes documented by Feeder Catcher have been reviewed. Reviewed/Co-Signed by: Carlos Teran Documentation Done by:GEMMA BERG Addendum: 11/24/22 at 1455 by Carlos Teran PT Amended: Links added.
[2022-11-24 15:02] VITALS: BP_SYST 104
--- NOTE | 2022-11-24 18:10 | NUR ---
End of shift Pt sitting up in bed eating his dinner. Left foot elevated on pillow. Pt was checked on q1' and PRN all shift for needs and care. Pt was maintained with safety precautions all shift. Bed in low position and bed alarm on. Side rails raised. Pain tolerable at this time. Call light within reach.
--- NOTE | 2022-11-24 19:50 | NUR ---
opening note Patient resting in bed, no distress. Family visiting and talking to him. V/S taken and B/P trending low 97/69. Bed is locked in lowest position, side rails up and call light w/in reach.
[2022-11-24 20:00] VITALS: BP_SYST 97
--- NOTE | 2022-11-24 22:12 | NUR ---
Meds Scheduled med given. Patient took tablets and swallowed with water, no further needs.
[2022-11-25] MEDS: AMPICILLIN SODIUM 2 GM in NS 100 ML IV SCH ×4 (00:20→18:23)
--- NOTE | 2022-11-25 00:20 | NUR ---
antibiotic Scheduled antibiotic, Ampicillin, administered. Infusing well, no sx of infiltration. Lasix not administered; B/P low 97/57. Patient requested bed puente for bowel movement; he did not have BM and bed puente removed.
[2022-11-25 00:58] VITALS: BP_SYST 113
--- NOTE | 2022-11-25 02:30 | NUR ---
resting Patient resting w/ eyes closed. Symmetrical rise and fall of chest, no distress. Safety precautions in place
[2022-11-25] MEDS: FUROSEMIDE 20 MG/2 ML VIAL IVP SCH ×4 (06:25→18:00)
[2022-11-25] MEDS: HYDROcodone/ACETAMIN 10-325 MG TAB PO PRN ×2 (06:43→11:27)
--- NOTE | 2022-11-25 08:02 | NUR ---
OPENING NOTES: RECEIVED BEDSIDE SBAR FROM PM SHIFT NURSE, NO S/S OF DISTRESS, NON LABOR BREATHING, BED AT LOW AND LOCKED POSITION, ABLE TO MAKE NEEDS KNOWN, PATIENT RESTING IN BED, WILL CONT TO MONITOR PATIENT PER ORDERS.
[2022-11-25 08:19] LABS: ANION GAP 6 (5-15); CHLORIDE 102 mmol/L (98-107); CREATININE 1.61 mg/dL (0.55-1.30); GLUCOSE 103 mg/dL (70-99); UREA NITROGEN, BLOOD 60 mg/dL (8-21); VANCOMYCIN,RANDOM 16.7 ug/mL
[2022-11-25] MEDS: PANTOPRAZOLE SODIUM 40 MG TAB PO SCH (09:00)
[2022-11-25] MEDS: LOSARTAN POTASSIUM 50 MG TABLET (COZAAR) PO SCH (09:00)
[2022-11-25] MEDS: SILDENAFIL CITRATE 20 MG TABLET PO SCH ×3 (09:00→20:22)
[2022-11-25] MEDS: METOPROLOL SUCCINATE 25 MG TAB.SR.24H (TOPROL XL) PO SCH (09:01)
[2022-11-25] MEDS: ASPIRIN 81 MG TAB.CHEW PO SCH (09:01)
[2022-11-25] MEDS: SPIRONOLACTONE 25 MG TABLET (ALDACTONE) PO SCH (09:01)
[2022-11-25] MEDS: POTASSIUM CHLORIDE 20 MEQ TAB.PRT.SR PO SCH (09:01)
[2022-11-25] MEDS: POLYETHYLENE GLYCOL 3350, 17 GM/ POWD.PACK PO SCH (09:02)
[2022-11-25 12:36] VITALS: BP_SYST 100
--- NOTE | 2022-11-25 14:53 | NUR ---
PHYSICAL THERAPY CO-SIGN The Physical Therapy Progress Notes documented by Fire Extinguisher Technician have been reviewed. Reviewed/Co-Signed by: Carlos Teran Documentation Done by:GEMMA BERG Addendum: 11/25/22 at 1453 by Carlos Teran PT Amended: Links added.
--- NOTE | 2022-11-25 15:09 | NUR ---
PER DR CATRINA CROFT NPO, PER DR SALDIVAR :TYPE AND, SCREEN, PT INR PTT STAT
[2022-11-25] MEDS: HYDROmorphone 2 MG/ML VIAL IVP PRN ×2 (16:11→22:01)
[2022-11-25 16:56] LABS: INR 1.1 (0.80-1.20); PROTHROMBIN TIME 11.2 SECS (9.5-12.5)
[2022-11-25 17:55] VITALS: BP_SYST 102
--- NOTE | 2022-11-25 18:44 | NUR ---
CLOSING NOTES: PATIENT REMAINED STABLE THROUGH OUT THE DAY, NO S/S OF ANY DISTRESS NON LABOR BREATHING, CALL LIGHT IN REACH, BED AT LOW AND LOCKED POSITION, ALL NEED WHERE MET , WILL GIVE PM SHIFT NURSE ASUNCIONY RN BEDSIDE SBAR.
[2022-11-25 19:30] VITALS: BP_SYST 100
[2022-11-25] MEDS: LIDOCAINE TOPICAL OINT 5%, 35 GM TP SCH (21:48)
[2022-11-26] MEDS: AMPICILLIN SODIUM 2 GM in NS 100 ML IV SCH ×2 (00:17→08:36)
[2022-11-26 00:20] VITALS: BP_SYST 99
[2022-11-26] MEDS: HYDROmorphone 2 MG/ML VIAL IVP PRN ×4 (02:17→21:38)
[2022-11-26] MEDS: FUROSEMIDE 20 MG/2 ML VIAL IVP SCH ×5 (05:13→23:53)
[2022-11-26] MEDS: LIDOCAINE TOPICAL OINT 5%, 35 GM TP SCH ×3 (06:42→21:47)
--- NOTE | 2022-11-26 07:26 | NUR ---
CLOSING NOTE PATIENT SLEPT WELL THROUGHOUT THE NIGHT. PATIENT VERBALIZED THAT PRN MEDICATION GIVEN TO HIM FOR PAIN WAS EFFECTIVE. HE WAS ABLE TO TURN HIMSELF FOR HYGIENE CARE. HE HAD ONE BOWEL MOVEMENT DURING THE NIGHT.
[2022-11-26 08:00] VITALS: BP_SYST 100
[2022-11-26] MEDS: POLYETHYLENE GLYCOL 3350, 17 GM/ POWD.PACK PO SCH (08:35)
[2022-11-26] MEDS: POTASSIUM CHLORIDE 20 MEQ TAB.PRT.SR PO SCH (08:35)
[2022-11-26] MEDS: ASPIRIN 81 MG TAB.CHEW PO SCH (08:35)
[2022-11-26] MEDS: PANTOPRAZOLE SODIUM 40 MG TAB PO SCH (08:35)
[2022-11-26] MEDS: SPIRONOLACTONE 25 MG TABLET (ALDACTONE) PO SCH (08:45)
[2022-11-26] MEDS: METOPROLOL SUCCINATE 25 MG TAB.SR.24H (TOPROL XL) PO SCH (08:46)
[2022-11-26] MEDS: LOSARTAN POTASSIUM 50 MG TABLET (COZAAR) PO SCH (08:46)
[2022-11-26 09:36] LABS: ALANINE AMINOTRANSFERASE 17 U/L (12-78); ALBUMIN 2.1 g/dL (3.4-4.8); ANION GAP 11 (5-15); ASPARTATE AMINOTRANSFERASE 23 U/L (10-37); CALCIUM 8.3 mg/dL (8.4-11.0); CHLORIDE 97 mmol/L (98-107); CREATININE 2.24 mg/dL (0.55-1.30); GLUCOSE 124 mg/dL (70-99); TOTAL BILIRUBIN 1.4 mg/dL (0.0-1.0); UREA NITROGEN, BLOOD 73 mg/dL (8-21)
[2022-11-26 09:52] LABS: BASOPHILS # (AUTO) 0.1 K/uL (0.0-0.2); BASOPHILS % (AUTO) 0.6 % (0.0-2.0); EOSINOPHILS # (AUTO) 0.3 K/uL (0.0-0.4); EOSINOPHILS % (AUTO) 2.4 % (0.0-4.0); HEMATOCRIT 36.2 % (36-54); HEMOGLOBIN 11.9 g/dL (14.0-18.0); LYMPHOCYTES # (AUTO) 2.2 K/uL (1.0-5.5); LYMPHOCYTES % (AUTO) 18.5 % (20.5-51.5); MEAN CORPUSCULAR HEMOGLOBIN 31 pg (27-31); MEAN CORPUSCULAR HGB CONC 33 % (32-36); MEAN CORPUSCULAR VOLUME 94 fL (79.0-98.0); MONOCYTES # (AUTO) 0.7 K/uL (0.0-1.0); MONOCYTES % (AUTO) 6.2 % (1.7-9.3); NEUTROPHILS # (AUTO) 8.7 K/uL (1.8-7.7); PLATELET COUNT (AUTO) 189 K/uL (130-430); RED BLOOD CELL COUNT(AUTO) 3.83 MIL/uL (4.2-6.2); RED CELL DISTRIBUTION WIDTH 17.3 % (9.0-15.0); WHITE BLOOD COUNT (AUTO) 12.1 K/uL (4.8-10.8)
[2022-11-26 10:00] LABS: NEUTROPHILS % (AUTO) 72.3 % (40.0-70.0)
[2022-11-26] MEDS ORDERED: AMOXICILLIN/POTASSIUM CLAV 875 MG TABLET PO SCH (10:15)
[2022-11-26] MEDS: SILDENAFIL CITRATE 20 MG TABLET PO SCH ×3 (10:29→21:35)
[2022-11-26 11:24] VITALS: BP_SYST 93
[2022-11-26] MEDS: HYDROcodone/ACETAMIN 10-325 MG TAB PO PRN (11:27)
[2022-11-26] MEDS ORDERED: AMOXICILLIN/POTASSIUM CLAV 875 MG TABLET PO ONE (11:45)
[2022-11-26 15:19] VITALS: BP_SYST 119
--- NOTE | 2022-11-26 15:28 | NUR ---
PHYSICAL THERAPY CO-SIGN The Physical Therapy Progress Notes documented by Cinder Block Maker have been reviewed. Reviewed/Co-Signed by: Carlos Teran Documentation Done by:GEMMA BERG Addendum: 11/26/22 at 1528 by Carlos Teran PT Amended: Links added.
--- NOTE | 2022-11-26 16:00 | NUR ---
patient c/o nausea, slidenafil held, telephone call to md for orders, awaiting reply
[2022-11-26] MEDS ORDERED: ALBU2.5V7 INH (16:57)
[2022-11-26] MEDS ORDERED: ONDA-8 TL (17:02)
--- NOTE | 2022-11-26 17:09 | NUR ---
patient c/o 10/10 constant throbbing pain in left leg and foot, prn dilaudid administered per emar
[2022-11-26] MEDS ORDERED: ONDANSETRON HCL 4 MG/2 ML VIAL IVP PRN (17:15)
[2022-11-26 17:26] VITALS: BP_SYST 119
[2022-11-26 19:00] VITALS: BP_SYST 92
[2022-11-26] MEDS: ALBUTEROL SULFATE 0.083% 2.5 MG/3 ML VIAL.NEB INH PRN ×2 (19:28→23:33)
[2022-11-26] MEDS: AMOXICILLIN/POTASSIUM CLAV 875 MG TABLET PO SCH (21:36)
[2022-11-27 00:04] VITALS: BP_SYST 97
[2022-11-27] MEDS: HYDROcodone/ACETAMIN 10-325 MG TAB PO PRN ×4 (02:06→20:56)
--- NOTE | 2022-11-27 03:59 | NUR ---
c/o N/V 150 ml + black liquid emesis in quigley bin. patient reported vomiting all over himself. Patient was cleaned and linen was changed. no further complaints
--- NOTE | 2022-11-27 04:13 | NUR ---
Jonnie Holm, Danni s/w Fer
--- NOTE | 2022-11-27 04:28 | NUR ---
jess ruff Addendum: 11/27/22 at 0448 by Willam Valero RN RN stephany hogan
--- NOTE | 2022-11-27 04:35 | NUR ---
MD communication Dr Sellers responded to page, no new orders at this time
[2022-11-27 05:54] LABS: BASOPHILS % (AUTO) 0.2 % (0.0-2.0); EOSINOPHILS # (AUTO) 0.1 K/uL (0.0-0.4); EOSINOPHILS % (AUTO) 0.7 % (0.0-4.0); HEMATOCRIT 32.2 % (36-54); HEMOGLOBIN 10.7 g/dL (14.0-18.0); LYMPHOCYTES # (AUTO) 1.1 K/uL (1.0-5.5); LYMPHOCYTES % (AUTO) 7.4 % (20.5-51.5); MEAN CORPUSCULAR HEMOGLOBIN 31 pg (27-31); MEAN CORPUSCULAR HGB CONC 33 % (32-36); MEAN CORPUSCULAR VOLUME 94 fL (79.0-98.0); MONOCYTES # (AUTO) 0.9 K/uL (0.0-1.0); MONOCYTES % (AUTO) 6.5 % (1.7-9.3); NEUTROPHILS # (AUTO) 12.2 K/uL (1.8-7.7); NEUTROPHILS % (AUTO) 85.2 % (40.0-70.0); PLATELET COUNT (AUTO) 187 K/uL (130-430); RED BLOOD CELL COUNT(AUTO) 3.45 MIL/uL (4.2-6.2); RED CELL DISTRIBUTION WIDTH 16.9 % (9.0-15.0); WHITE BLOOD COUNT (AUTO) 14.3 K/uL (4.8-10.8)
--- NOTE | 2022-11-27 05:55 | NUR ---
follow up CONSULTATION PAGED/CALLED Reason for Consultation:vomiting Person Who was Notified: peggy Consulting Physician: kenton Grab Jack Man Specialty: Ordering Physician: emery since pt is vomiting now doctor wants GI to follow up
[2022-11-27] MEDS ORDERED: HYDROmorphone 2 MG/ML VIAL IVP PRN (06:15)
[2022-11-27] MEDS ORDERED: MAG-AL HYDROX/SIMETH 30 ML UDC PO ONE (06:15)
[2022-11-27] MEDS ORDERED: LIDOCAINE VISCOUS 2%, 15 ML UDC MM ONE (06:15)
[2022-11-27 06:19] LABS: ALANINE AMINOTRANSFERASE 15 U/L (12-78); ALBUMIN 1.9 g/dL (3.4-4.8); ANION GAP 6 (5-15); ASPARTATE AMINOTRANSFERASE 19 U/L (10-37); CALCIUM 8.2 mg/dL (8.4-11.0); CHLORIDE 93 mmol/L (98-107); CREATININE 2.86 mg/dL (0.55-1.30); GLUCOSE 116 mg/dL (70-99); TOTAL BILIRUBIN 1.6 mg/dL (0.0-1.0); UREA NITROGEN, BLOOD 87 mg/dL (8-21)
--- NOTE | 2022-11-27 06:24 | NUR ---
Critical lab Potassium 6.2 MD notified
--- NOTE | 2022-11-27 06:37 | NUR ---
Attending MD medtronics technician, Dr WHITE WAS CALLED, RE; Critical K Level of 6.2 Spoke to ARPITA.
[2022-11-27] MEDS: FUROSEMIDE 20 MG/2 ML VIAL IVP SCH ×3 (07:04→18:22)
[2022-11-27] MEDS: LIDOCAINE TOPICAL OINT 5%, 35 GM TP SCH ×3 (07:05→22:00)
[2022-11-27] MEDS ORDERED: CALCIUM GLUCONATE 1 GM in NS 100 ML IV ONE (07:30)
[2022-11-27] MEDS ORDERED: DEXTROSE 50% JECT 50 ML DISP.SYRIN IVP ONE (07:30)
[2022-11-27] MEDS ORDERED: SODIUM ZIRCONIUM CYCLOSILICATE 10 GM POWD.PACK PO ONE (07:30)
[2022-11-27] MEDS ORDERED: INSULIN REGULAR, HUMAN 10 UNITS/0.1 ML, 3 ML VIAL IVP ONE (07:30)
--- NOTE | 2022-11-27 08:30 | NUR ---
patient c/o 10/10 pain, request po norco
[2022-11-27] MEDS: SPIRONOLACTONE 25 MG TABLET (ALDACTONE) PO SCH (09:00)
[2022-11-27] MEDS: LOSARTAN POTASSIUM 50 MG TABLET (COZAAR) PO SCH (09:00)
[2022-11-27] MEDS: POLYETHYLENE GLYCOL 3350, 17 GM/ POWD.PACK PO SCH (09:00)
[2022-11-27] MEDS: POTASSIUM CHLORIDE 20 MEQ TAB.PRT.SR PO SCH (09:00)
[2022-11-27] MEDS: SILDENAFIL CITRATE 20 MG TABLET PO SCH ×4 (09:00→20:57)
[2022-11-27] MEDS: ASPIRIN 81 MG TAB.CHEW PO SCH (09:00)
[2022-11-27] MEDS: METOPROLOL SUCCINATE 25 MG TAB.SR.24H (TOPROL XL) PO SCH (09:00)
[2022-11-27] MEDS: AMOXICILLIN/POTASSIUM CLAV 875 MG TABLET PO SCH ×2 (10:13→20:57)
[2022-11-27] MEDS: PANTOPRAZOLE SODIUM 40 MG/VIAL (PROTONIX) IVP SCH ×2 (10:15→20:57)
[2022-11-27 11:13] VITALS: BP_SYST 104
--- NOTE | 2022-11-27 13:30 | NUR ---
patient c/o 10/10 pain in left leg, request dilaudid iv,but refused medication once at bedside, request to wait one more hour until [place] is due
[2022-11-27 15:12] VITALS: BP_SYST 99
--- NOTE | 2022-11-27 15:30 | NUR ---
telephone call to philomena walters with [facility] to notify her that patients daughter has decided on [facility] for placement, no answer and unable to leave voice mail due to mail box being full
--- NOTE | 2022-11-27 18:45 | NUR ---
PATIENT RESTING COMFORTABLY IN BED, NO S/SX OF PAIN OR DISCOMFORT, ASLEEP BUT AROUSABLE, WILL ENDORSE CARE TO PM NURSE
[2022-11-27 20:00] VITALS: BP_SYST 98
[2022-11-28] VITALS: BP_SYST 99
[2022-11-28] MEDS: FUROSEMIDE 20 MG/2 ML VIAL IVP SCH ×5 (01:23→19:33)
[2022-11-28 04:00] VITALS: BP_SYST 101
[2022-11-28] MEDS: LIDOCAINE TOPICAL OINT 5%, 35 GM TP SCH ×3 (06:51→21:30)
--- NOTE | 2022-11-28 07:50 | NUR ---
rn opening note report was endorsed was night nurse. patient appears to be resting with both eyes closed no signs of any distress. breathing is equal and non labored. no other needs at this time.
[2022-11-28 08:00] VITALS: BP_SYST 114
[2022-11-28] MEDS: PANTOPRAZOLE SODIUM 40 MG/VIAL (PROTONIX) IVP SCH ×2 (08:48→21:21)
[2022-11-28] MEDS: ASPIRIN 81 MG TAB.CHEW PO SCH (08:48)
[2022-11-28] MEDS: AMOXICILLIN/POTASSIUM CLAV 875 MG TABLET PO SCH ×2 (08:48→21:21)
[2022-11-28] MEDS: SILDENAFIL CITRATE 20 MG TABLET PO SCH ×3 (08:49→21:00)
[2022-11-28] MEDS: POLYETHYLENE GLYCOL 3350, 17 GM/ POWD.PACK PO SCH (08:50)
[2022-11-28] MEDS: SPIRONOLACTONE 25 MG TABLET (ALDACTONE) PO SCH (08:50)
[2022-11-28] MEDS: HYDROcodone/ACETAMIN 10-325 MG TAB PO PRN ×2 (08:52→21:26)
[2022-11-28] MEDS: POTASSIUM CHLORIDE 20 MEQ TAB.PRT.SR PO SCH ×2 (09:00→09:57)
--- NOTE | 2022-11-28 09:01 | NUR ---
medication patients scheduled medication given per order. patient is refusing mirlax at this time. states his bowel movements are fine.educated to use call light for assistance call light is with him. eating breakfast no other needs at this time.
[2022-11-28] MEDS: METOPROLOL SUCCINATE 25 MG TAB.SR.24H (TOPROL XL) PO SCH (09:58)
[2022-11-28] MEDS: LOSARTAN POTASSIUM 50 MG TABLET (COZAAR) PO SCH (09:59)
--- NOTE | 2022-11-28 09:59 | NUR ---
medication the rest of patients blood pressure medication given. patients potassium is elevated held potassium. patient provided with warm blanket as requested. patient has call light with him educated to uses for assistance.
[2022-11-28 10:36] LABS: BASOPHILS % (AUTO) 0.4 % (0.0-2.0); EOSINOPHILS # (AUTO) 0.2 K/uL (0.0-0.4); EOSINOPHILS % (AUTO) 1.8 % (0.0-4.0); HEMATOCRIT 31.1 % (36-54); HEMOGLOBIN 10.5 g/dL (14.0-18.0); LYMPHOCYTES % (AUTO) 12.2 % (20.5-51.5); MEAN CORPUSCULAR HEMOGLOBIN 32 pg (27-31); MEAN CORPUSCULAR HGB CONC 34 % (32-36); MEAN CORPUSCULAR VOLUME 95 fL (79.0-98.0); MONOCYTES # (AUTO) 0.6 K/uL (0.0-1.0); MONOCYTES % (AUTO) 7.2 % (1.7-9.3); NEUTROPHILS # (AUTO) 6.5 K/uL (1.8-7.7); NEUTROPHILS % (AUTO) 78.4 % (40.0-70.0); PLATELET COUNT (AUTO) 170 K/uL (130-430); RED BLOOD CELL COUNT(AUTO) 3.29 MIL/uL (4.2-6.2); RED CELL DISTRIBUTION WIDTH 16.7 % (9.0-15.0); WHITE BLOOD COUNT (AUTO) 8.3 K/uL (4.8-10.8)
[2022-11-28 10:59] LABS: ALANINE AMINOTRANSFERASE 12 U/L (12-78); ALBUMIN 1.9 g/dL (3.4-4.8); ANION GAP 6 (5-15); ASPARTATE AMINOTRANSFERASE 21 U/L (10-37); CALCIUM 8.6 mg/dL (8.4-11.0); CHLORIDE 99 mmol/L (98-107); CREATININE 2.13 mg/dL (0.55-1.30); GLUCOSE 101 mg/dL (70-99); TOTAL BILIRUBIN 1.2 mg/dL (0.0-1.0); UREA NITROGEN, BLOOD 70 mg/dL (8-21)
[2022-11-28 12:00] VITALS: BP_SYST 113
--- NOTE | 2022-11-28 15:25 | NUR ---
spoke with patient regarding scheduled medication his blood pressure is low. he said at home he is only take 1 pils 3 times a day and here we have it ordered. 3 pills 3 times a day.
[2022-11-28 15:26] VITALS: BP_SYST 90
--- NOTE | 2022-11-28 17:23 | NUR ---
DR. VILLARREAL SPOKE WITH MD INFORMED OF PATIENTS BLOOD PRESSURE ORDERS WERE RECEIVED.
[2022-11-28] MEDS ORDERED: NS 500 ML IV ONE (17:30)
--- NOTE | 2022-11-28 18:04 | NUR ---
bolus started. iv infiltrated started new iv site obtained 22g to left fa flushing well. family is at bedside. Educated nurse companion light for assistance. call light is with him. no other needs at this time.
--- NOTE | 2022-11-28 19:29 | NUR ---
Report received from day shift RN for continuity of care. Patient in stable condition. No distress noted.
[2022-11-28 20:00] VITALS: BP_SYST 110
[2022-11-28] MEDS ORDERED: HYDROmorphone 2 MG/ML VIAL IVP PRN (20:00)
[2022-11-28] MEDS: HEPARIN SODIUM,PORCINE 5,000 UNITS/ML VIAL SUBCUT SCH (21:28)
[2022-11-29] VITALS (9 sets, daily range): BP systolic 85–120
[2022-11-29] MEDS: FUROSEMIDE 20 MG/2 ML VIAL IVP SCH ×3 (03:21→18:00)
[2022-11-29] MEDS: LIDOCAINE TOPICAL OINT 5%, 35 GM TP SCH ×3 (03:22→21:48)
[2022-11-29] MEDS: HYDROcodone/ACETAMIN 10-325 MG TAB PO PRN ×3 (05:20→15:54)
[2022-11-29 05:42] LABS: BASOPHILS # (AUTO) 0.1 K/uL (0.0-0.2); BASOPHILS % (AUTO) 0.8 % (0.0-2.0); EOSINOPHILS # (AUTO) 0.2 K/uL (0.0-0.4); EOSINOPHILS % (AUTO) 2.4 % (0.0-4.0); HEMATOCRIT 27.4 % (36-54); HEMOGLOBIN 9.4 g/dL (14.0-18.0); LYMPHOCYTES # (AUTO) 1.1 K/uL (1.0-5.5); LYMPHOCYTES % (AUTO) 15.8 % (20.5-51.5); MEAN CORPUSCULAR HEMOGLOBIN 32 pg (27-31); MEAN CORPUSCULAR HGB CONC 34 % (32-36); MEAN CORPUSCULAR VOLUME 94 fL (79.0-98.0); MONOCYTES # (AUTO) 0.5 K/uL (0.0-1.0); MONOCYTES % (AUTO) 7.9 % (1.7-9.3); NEUTROPHILS # (AUTO) 4.9 K/uL (1.8-7.7); NEUTROPHILS % (AUTO) 73.1 % (40.0-70.0); PLATELET COUNT (AUTO) 162 K/uL (130-430); RED BLOOD CELL COUNT(AUTO) 2.91 MIL/uL (4.2-6.2); RED CELL DISTRIBUTION WIDTH 16.7 % (9.0-15.0); WHITE BLOOD COUNT (AUTO) 6.8 K/uL (4.8-10.8)
--- NOTE | 2022-11-29 06:08 | NUR ---
Patient resting throughout the shift. No active distress noted.
[2022-11-29 06:20] LABS: ALANINE AMINOTRANSFERASE 10 U/L (12-78); ALBUMIN 1.7 g/dL (3.4-4.8); ANION GAP 4 (5-15); ASPARTATE AMINOTRANSFERASE 27 U/L (10-37); CALCIUM 7.8 mg/dL (8.4-11.0); CHLORIDE 103 mmol/L (98-107); CREATININE 1.93 mg/dL (0.55-1.30); GLUCOSE 99 mg/dL (70-99); PHOSPHORUS 3.9 mg/dL (2.7-4.5); TOTAL BILIRUBIN 0.7 mg/dL (0.0-1.0); UREA NITROGEN, BLOOD 70 mg/dL (8-21)
--- NOTE | 2022-11-29 06:31 | NUR ---
Report given to day shift RN for continuity of care. Patient in stable condition. No distress noted.
[2022-11-29] MEDS: POLYETHYLENE GLYCOL 3350, 17 GM/ POWD.PACK PO SCH (09:00)
[2022-11-29] MEDS: LOSARTAN POTASSIUM 50 MG TABLET (COZAAR) PO SCH (09:00)
[2022-11-29] MEDS: METOPROLOL SUCCINATE 25 MG TAB.SR.24H (TOPROL XL) PO SCH (09:00)
[2022-11-29] MEDS: SPIRONOLACTONE 25 MG TABLET (ALDACTONE) PO SCH (09:00)
[2022-11-29] MEDS: SILDENAFIL CITRATE 20 MG TABLET PO SCH ×3 (09:00→21:47)
[2022-11-29] MEDS: PANTOPRAZOLE SODIUM 40 MG/VIAL (PROTONIX) IVP SCH ×2 (10:08→21:47)
[2022-11-29] MEDS: ASPIRIN 81 MG TAB.CHEW PO SCH (10:08)
[2022-11-29] MEDS: POTASSIUM CHLORIDE 20 MEQ TAB.PRT.SR PO SCH (10:09)
[2022-11-29] MEDS: HEPARIN SODIUM,PORCINE 5,000 UNITS/ML VIAL SUBCUT SCH (10:11)
--- NOTE | 2022-11-29 13:17 | NUR ---
PHYSICAL THERAPY CO-SIGN The Physical Therapy Progress Notes documented by Nursery Laborer have been reviewed. Reviewed/Co-Signed by: Carlos Teran Documentation Done by:GEMMA BERG Addendum: 11/29/22 at 1318 by Carlos Teran PT Amended: Links added.
[2022-11-29] MEDS: ALBUMIN HUMAN 25% 50 ML IV SCH ×2 (15:53→18:52)
[2022-11-29] MEDS: AMOXICILLIN/POTASSIUM CLAV 875 MG TABLET PO SCH ×2 (15:54→21:48)
--- NOTE | 2022-11-29 20:41 | NUR ---
This newswriter spoke with Opal mr Crawford's daughter abd provided an update. related to BP meds being adjusted. Lasix Doose being adjusted. His Pt efforts and the possibility of DC tomorrow
--- NOTE | 2022-11-29 22:03 | NUR ---
Dietitian Recommendations *Continue Na2gm Diet per MD Rx -If PO intakes improve, consider renal diet, monitor renal labs *Recommend Su[place]ena BID + Carlos BID to help meet needs and encourage wound Healing Monitor and evaluate PO intakes, GI, skin, labs Please refer to RD Assessment for details CAITLYN MENCHACA Addendum: 11/29/22 at [address] Amended: Links added.
[2022-11-30] MEDS: HYDROcodone/ACETAMIN 10-325 MG TAB PO PRN ×3 (01:20→17:40)
[2022-11-30] MEDS: ALBUMIN HUMAN 25% 50 ML IV SCH (01:21)
[2022-11-30 01:29] VITALS: BP_SYST 106
[2022-11-30] MEDS: FUROSEMIDE 20 MG/2 ML VIAL IVP SCH ×2 (06:00)
[2022-11-30] MEDS: LIDOCAINE TOPICAL OINT 5%, 35 GM TP SCH ×2 (06:58→17:50)
[2022-11-30 07:17] LABS: BASOPHILS % (AUTO) 0.5 % (0.0-2.0); EOSINOPHILS # (AUTO) 0.1 K/uL (0.0-0.4); EOSINOPHILS % (AUTO) 2.2 % (0.0-4.0); HEMOGLOBIN 9.2 g/dL (14.0-18.0); LYMPHOCYTES # (AUTO) 0.8 K/uL (1.0-5.5); LYMPHOCYTES % (AUTO) 17.3 % (20.5-51.5); MEAN CORPUSCULAR HEMOGLOBIN 32 pg (27-31); MEAN CORPUSCULAR HGB CONC 34 % (32-36); MEAN CORPUSCULAR VOLUME 94 fL (79.0-98.0); MONOCYTES # (AUTO) 0.5 K/uL (0.0-1.0); MONOCYTES % (AUTO) 9.4 % (1.7-9.3); NEUTROPHILS # (AUTO) 3.5 K/uL (1.8-7.7); NEUTROPHILS % (AUTO) 70.6 % (40.0-70.0); PLATELET COUNT (AUTO) 145 K/uL (130-430); RED BLOOD CELL COUNT(AUTO) 2.87 MIL/uL (4.2-6.2); RED CELL DISTRIBUTION WIDTH 16.1 % (9.0-15.0); WHITE BLOOD COUNT (AUTO) 4.9 K/uL (4.8-10.8)
[2022-11-30 07:31] LABS: ANION GAP 2 (5-15); CALCIUM 8.1 mg/dL (8.4-11.0); CHLORIDE 107 mmol/L (98-107); CREATININE 1.42 mg/dL (0.55-1.30); GLUCOSE 96 mg/dL (70-99); UREA NITROGEN, BLOOD 46 mg/dL (8-21)
--- NOTE | 2022-11-30 08:00 | NUR ---
Initial notes Received patient wake in bed AAOx4, no c/o pain/SOB, no signs of distress noted. IV to right wrist patent. All safety secured, bed in low position and call light w/in reached
[2022-11-30 08:02] VITALS: BP_SYST 105
[2022-11-30] MEDS ORDERED: LOSARTAN POTASSIUM 50 MG TABLET (COZAAR) PO SCH (09:00)
[2022-11-30] MEDS: POLYETHYLENE GLYCOL 3350, 17 GM/ POWD.PACK PO SCH (09:00)
[2022-11-30] MEDS: PANTOPRAZOLE SODIUM 40 MG/VIAL (PROTONIX) IVP SCH (09:18)
[2022-11-30] MEDS: POTASSIUM CHLORIDE 20 MEQ TAB.PRT.SR PO SCH (09:19)
[2022-11-30] MEDS: ASPIRIN 81 MG TAB.CHEW PO SCH (09:19)
[2022-11-30] MEDS: SPIRONOLACTONE 25 MG TABLET (ALDACTONE) PO SCH (09:20)
[2022-11-30] MEDS: AMOXICILLIN/POTASSIUM CLAV 875 MG TABLET PO SCH ×2 (09:34→20:50)
[2022-11-30] MEDS: SILDENAFIL CITRATE 20 MG TABLET PO SCH ×2 (09:34→17:41)
[2022-11-30 11:09] VITALS: BP_SYST 116
[2022-11-30] MEDS ORDERED: FUROSEMIDE 20 MG/2 ML VIAL IVP SCH (12:00)
[2022-11-30] MEDS ORDERED: FUROSEMIDE 20 MG TABLET PO SCH (14:00)
[2022-11-30 15:04] VITALS: BP_SYST 135
--- NOTE | 2022-11-30 15:30 | NUR ---
discharge spoke with Jessica Nye to discharge home with home health
--- NOTE | 2022-11-30 16:00 | NUR ---
Spoke with Ruby PHIPPS via telephone, states " home health already arranged, will call back for ETA for walker.
--- NOTE | 2022-11-30 16:26 | NUR ---
PHYSICAL THERAPY CO-SIGN The Physical Therapy Progress Notes documented by Tank Carpenter have been reviewed. Reviewed/Co-Signed by: Carlos Teran Documentation Done by:GEMMA BERG Addendum: 11/30/22 at 1627 by Carlos Teran PT Amended: Links added.
--- NOTE | 2022-11-30 18:20 | NUR ---
Change wound dressing to left lower leg, picture taken, patient waiting for FWW to deliver to unit before discharge per DESIRE Beltran
[2022-11-30 20:00] VITALS: BP_SYST 133
[2022-11-30 20:10] VITALS: BP_SYST 133
--- NOTE | 2022-11-30 20:30 | NUR ---
D/C Patient Patient given medication reconciliation form and D/C instructions. Exit Care provided. Patient verbalized understanding Ambulatory with the use of FWW unsteady gait for discharge to home with assist discussed safety. Patient in stable condition, . IV catheter removed, intact and dressing applied, no active bleeding. Patient educated on pain management, wound dressing,medication All belongings sent with patient.case management phone no. given Ruby [phone] for home health follow up for PT,safety wound care, per morning shift it was arranged , FWW delivered taken home by the patient.left leg dressing with dressing secured/clean intact, extra dressing materials given to patient.
--- NOTE | 2022-11-30 21:15 | NUR ---
Discharged home via wheelchair accompanied by the with all the belongings taken.
[2022-12-03] MEDS ORDERED: FUROSEMIDE 20 MG/2 ML VIAL IVP SCH (22:00)
== END 2022-11-30 21:15 | disposition home health service (06) | DRG 871 ==
LOC: SED 14:12 → SMU 20:06
PROVIDERS: ADMIT Specialist; ATTEND Specialist
DX: A41.9 Sepsis, unspecified organism (principal); I50.43 Acute on chronic combined systolic (congestive) and diastolic (congestive) heart failure; L03.116 Cellulitis of left lower limb; I13.0 Hypertensive heart and chronic kidney disease with heart failure and stage 1 through stage 4 chronic kidney disease, or unspecified chronic kidney disease; K21.9 Gastro-esophageal reflux disease without esophagitis; E66.01 Morbid (severe) obesity due to excess calories; E78.5 Hyperlipidemia, unspecified; S80.822A Blister (nonthermal), left lower leg, initial encounter; X58.XXXA Exposure to other specified factors, initial encounter; B19.20 Unspecified viral hepatitis C without hepatic coma; N18.31 Chronic kidney disease, stage 3a; E11.22 Type 2 diabetes mellitus with diabetic chronic kidney disease; K74.60 Unspecified cirrhosis of liver; Z79.899 Other long term (current) drug therapy; Z87.891 Personal history of nicotine dependence; Z87.11 Personal history of peptic ulcer disease; Z79.891 Long term (current) use of opiate analgesic; Z79.1 Long term (current) use of non-steroidal anti-inflammatories (NSAID); Z68.38 Body mass index [BMI] 38.0-38.9, adult; Y93.89 Activity, other specified; Y92.89 Other specified places as the place of occurrence of the external cause; Y99.8 Other external cause status
CPT/HCPCS: 36415; 71045; 73700-TC; 76376; 76700-TC; 80048; 80053; 80074; 80202; 82105; 82550; 83605; 83735; 83880; 84100; 85007; 85025; 85027; 85610-TC; 85651-TC; 85730-TC; 86060; 86140; 86886; 86900; 86901; 87040; 87070-TC; 87075-TC; 87081; 93306; 94640; 94760; 96365; 96367; 96375; 97110-GP; 97112-GP; 97116-GP; 97530-GP; 99291; C9113; J0290; J0610; J0696; J1170; J1644; J1815; J1940; J2001; J2270; J2405; J2543; J3370; J7030; J7050; J7060; J7613; P9046

== ENCOUNTER 2022-12-03 16:07 | Inpatient (IN) | payer OTHER ==
[~2022-12-03] VITALS: Ht 167.6 cm; Wt 103.9 kg
[~2022-12-03 16:07] MED LIST changes: +ALBU2.5V7 INH; +AMLO5TAB92 PO; +ATOR10TA68 PO; +FURO40TA5 PO; +METO-540 PO; +ONDA-8 TL; +POTA-197 PO; +SILD20TA2 PO; +SPIR25TA6 PO; -VALS160T2 PO
[2022-12-03 16:33] VITALS: BP_SYST 136; PULSE 78; RESP 18; TEMP 98.2; O2SAT 100; O2SAT 99
[2022-12-03 18:32] LABS: BASOPHILS # (AUTO) 0.1 K/uL (0.0-0.2); BASOPHILS % (AUTO) 0.8 % (0.0-2.0); EOSINOPHILS # (AUTO) 0.2 K/uL (0.0-0.4); EOSINOPHILS % (AUTO) 2.8 % (0.0-4.0); HEMATOCRIT 31.1 % (36-54); HEMOGLOBIN 10.5 g/dL (14.0-18.0); MEAN CORPUSCULAR HEMOGLOBIN 32 pg (27-31); MEAN CORPUSCULAR HGB CONC 34 % (32-36); MEAN CORPUSCULAR VOLUME 94 fL (79.0-98.0); MONOCYTES # (AUTO) 0.7 K/uL (0.0-1.0); MONOCYTES % (AUTO) 8.9 % (1.7-9.3); NEUTROPHILS # (AUTO) 5.9 K/uL (1.8-7.7); NEUTROPHILS % (AUTO) 74.5 % (40.0-70.0); PLATELET COUNT (AUTO) 200 K/uL (130-430); RED BLOOD CELL COUNT(AUTO) 3.31 MIL/uL (4.2-6.2); RED CELL DISTRIBUTION WIDTH 15.9 % (9.0-15.0)
[2022-12-03 18:38] LABS: ANION GAP 5 (5-15); CALCIUM 8.7 mg/dL (8.4-11.0); CHLORIDE 101 mmol/L (98-107); CREATININE 1.81 mg/dL (0.55-1.30); GLUCOSE 117 mg/dL (70-99); UREA NITROGEN, BLOOD 66 mg/dL (8-21)
[2022-12-03 18:40] LABS: ALANINE AMINOTRANSFERASE 14 U/L (12-78); ALBUMIN 2.5 g/dL (3.4-4.8); ASPARTATE AMINOTRANSFERASE 20 U/L (10-37); C-REACTIVE PROTEIN QUANT 5.5 mg/dL (0-0.5); TOTAL BILIRUBIN 0.9 mg/dL (0.0-1.0)
[2022-12-03] MEDS ORDERED: FUROSEMIDE 40 MG/4 ML VIAL IVP ONE (20:00)
[2022-12-03] MEDS ORDERED: VANCOMYCIN HCL 1,000 MG in NS 250 ML IV ONE (20:00)
[2022-12-03] MEDS ORDERED: VANCOMYCIN HCL 1000 MG/VIAL IV ONE (20:09)
[2022-12-03] MEDS ORDERED: LIDOINT (20:19)
[2022-12-03] MEDS ORDERED: DOXY100C5 PO (20:19)
[2022-12-03] MEDS ORDERED: LEVA0.31 (20:19)
[2022-12-03] MEDS ORDERED: AMOX-423 PO (20:19)
[2022-12-03 21:30] VITALS: BP_SYST 106; PULSE 79; RESP 16; TEMP 98.3; O2SAT 96
[2022-12-03] MEDS ORDERED: NALOXONE HCL 0.4 MG/ML AMP (NARCAN) IVP PRN ×3 (23:15→23:30)
[2022-12-03] MEDS ORDERED: traZODone HCL 50 MG TABLET (DESYREL) PO PRN (23:15)
[2022-12-03] MEDS ORDERED: ONDANSETRON HCL 4 MG/2 ML VIAL IVP PRN ×2 (23:15→23:30)
[2022-12-03] MEDS ORDERED: HYDROcodone/ACETAMIN 5-325 MG TAB (NORCO/ VICODIN) PO PRN (23:15)
[2022-12-03] MEDS ORDERED: ACETAMINOPHEN 325 MG TABLET PO PRN ×2 (23:15)
[2022-12-03] MEDS: HYDROcodone/ACETAMIN 10-325 MG TAB PO PRN (23:18)
[2022-12-03] MEDS ORDERED: LORazepam 2 MG/ML VIAL IVP PRN (23:30)
[2022-12-03] MEDS ORDERED: HYDROcodone/ACETAMIN 10-325 MG TAB PO PRN (23:30)
[2022-12-04 00:17] VITALS: BP_SYST 106; PULSE 81; RESP 14; TEMP 95.3; O2SAT 98
[2022-12-04 07:15] LABS: BASOPHILS % (AUTO) 0.9 % (0.0-2.0); EOSINOPHILS # (AUTO) 0.2 K/uL (0.0-0.4); EOSINOPHILS % (AUTO) 3.4 % (0.0-4.0); HEMATOCRIT 26.2 % (36-54); HEMOGLOBIN 8.9 g/dL (14.0-18.0); LYMPHOCYTES # (AUTO) 0.9 K/uL (1.0-5.5); LYMPHOCYTES % (AUTO) 17.7 % (20.5-51.5); MEAN CORPUSCULAR HEMOGLOBIN 32 pg (27-31); MEAN CORPUSCULAR HGB CONC 34 % (32-36); MEAN CORPUSCULAR VOLUME 93 fL (79.0-98.0); MONOCYTES # (AUTO) 0.5 K/uL (0.0-1.0); MONOCYTES % (AUTO) 9.1 % (1.7-9.3); NEUTROPHILS # (AUTO) 3.6 K/uL (1.8-7.7); NEUTROPHILS % (AUTO) 68.9 % (40.0-70.0); PLATELET COUNT (AUTO) 135 K/uL (130-430); RED BLOOD CELL COUNT(AUTO) 2.81 MIL/uL (4.2-6.2); RED CELL DISTRIBUTION WIDTH 16.3 % (9.0-15.0); WHITE BLOOD COUNT (AUTO) 5.2 K/uL (4.8-10.8)
[2022-12-04 07:24] LABS: ANION GAP 8 (5-15); CHLORIDE 104 mmol/L (98-107); CREATININE 1.56 mg/dL (0.55-1.30); GLUCOSE 89 mg/dL (70-99); PHOSPHORUS 4.1 mg/dL (2.7-4.5); UREA NITROGEN, BLOOD 59 mg/dL (8-21)
[2022-12-04 08:20] VITALS: BP_SYST 114; PULSE 71; RESP 15; TEMP 98.5; O2SAT 96
[2022-12-04 08:45] VITALS: O2SAT 96
[2022-12-04] MEDS: POTASSIUM CHLORIDE 20 MEQ TAB.PRT.SR PO SCH (09:27)
[2022-12-04] MEDS: HYDROcodone/ACETAMIN 10-325 MG TAB PO PRN ×3 (09:27→23:44)
[2022-12-04] MEDS: PANTOPRAZOLE SODIUM 40 MG TAB PO SCH (09:27)
[2022-12-04 11:27] VITALS: BP_SYST 108; PULSE 71; RESP 16; TEMP 97.7; O2SAT 99
[2022-12-04] MEDS: amLODIPine BESYLATE 5 MG TABLET PO SCH (11:50)
[2022-12-04] MEDS: SPIRONOLACTONE 25 MG TABLET (ALDACTONE) PO SCH (11:50)
[2022-12-04] MEDS: SILDENAFIL CITRATE 20 MG TABLET PO SCH ×4 (11:50→22:01)
[2022-12-04] MEDS: FUROSEMIDE 40 MG TABLET PO SCH (11:51)
[2022-12-04] MEDS: METOPROLOL SUCCINATE 25 MG TAB.SR.24H (TOPROL XL) PO SCH (11:51)
[2022-12-04 15:15] VITALS: BP_SYST 92; PULSE 74; RESP 14; TEMP 96.1; O2SAT 96
[2022-12-04 20:00] VITALS: BP_SYST 96; PULSE 89; RESP 16; TEMP 97.7; O2SAT 97
[2022-12-05] VITALS (10 sets, daily range): BP systolic 96–121; PULSE 65–91; RESP 15–20; TEMP 97.1–98.6; O2SAT 0–98
[2022-12-05] MEDS ORDERED: NALOXONE HCL 0.4 MG/ML AMP (NARCAN) IVP PRN (05:15)
[2022-12-05] MEDS: OXYCODONE/ACETAMINOPHEN 5-325 TABLET PO PRN ×3 (05:22→18:25)
[2022-12-05 06:21] LABS: BASOPHILS # (AUTO) 0.1 K/uL (0.0-0.2); BASOPHILS % (AUTO) 1.1 % (0.0-2.0); EOSINOPHILS # (AUTO) 0.2 K/uL (0.0-0.4); EOSINOPHILS % (AUTO) 2.9 % (0.0-4.0); HEMATOCRIT 27.8 % (36-54); HEMOGLOBIN 9.2 g/dL (14.0-18.0); LYMPHOCYTES % (AUTO) 17.1 % (20.5-51.5); MEAN CORPUSCULAR HEMOGLOBIN 31 pg (27-31); MEAN CORPUSCULAR HGB CONC 33 % (32-36); MEAN CORPUSCULAR VOLUME 94 fL (79.0-98.0); MONOCYTES # (AUTO) 0.5 K/uL (0.0-1.0); MONOCYTES % (AUTO) 8.7 % (1.7-9.3); NEUTROPHILS % (AUTO) 70.2 % (40.0-70.0); PLATELET COUNT (AUTO) 131 K/uL (130-430); RED BLOOD CELL COUNT(AUTO) 2.95 MIL/uL (4.2-6.2); RED CELL DISTRIBUTION WIDTH 16.3 % (9.0-15.0); WHITE BLOOD COUNT (AUTO) 5.7 K/uL (4.8-10.8)
[2022-12-05 06:29] LABS: ERYTHROCYTE SEDIMENTATION RATE 23 MM/HR (0-15)
[2022-12-05 06:50] LABS: ANION GAP 4 (5-15); C-REACTIVE PROTEIN QUANT 3.8 mg/dL (0-0.5); CALCIUM 8.2 mg/dL (8.4-11.0); CHLORIDE 106 mmol/L (98-107); CREATININE 1.43 mg/dL (0.55-1.30); GLUCOSE 98 mg/dL (70-99); PHOSPHORUS 3.3 mg/dL (2.7-4.5); UREA NITROGEN, BLOOD 43 mg/dL (8-21)
[2022-12-05] MEDS: amLODIPine BESYLATE 5 MG TABLET PO SCH (09:00)
[2022-12-05] MEDS: SILDENAFIL CITRATE 20 MG TABLET PO SCH ×3 (10:47→21:23)
[2022-12-05] MEDS: METOPROLOL SUCCINATE 25 MG TAB.SR.24H (TOPROL XL) PO SCH (10:48)
[2022-12-05] MEDS: PANTOPRAZOLE SODIUM 40 MG TAB PO SCH (10:48)
[2022-12-05] MEDS: SPIRONOLACTONE 25 MG TABLET (ALDACTONE) PO SCH (10:48)
[2022-12-05] MEDS: FUROSEMIDE 40 MG TABLET PO SCH (10:49)
[2022-12-05] MEDS: POTASSIUM CHLORIDE 20 MEQ TAB.PRT.SR PO SCH (10:49)
[2022-12-05] MEDS ORDERED: CEFEPIME 1 GM in D5W 50 ML IV ONE (14:00)
[2022-12-05] MEDS: CEFEPIME 1 GM in D5W 50 ML IV SCH (21:41)
[2022-12-05] MEDS ORDERED: ALBUTEROL SULFATE 0.083% 2.5 MG/3 ML VIAL.NEB INH ONE (22:23)
[2022-12-05] MEDS ORDERED: IPRATROPIUM BROM 0.5 MG/2.5 ML VIAL.NEB (ATROVENT) INH ONE (22:23)
[2022-12-05] MEDS ORDERED: ALBUTEROL SULFATE 0.083% 2.5 MG/3 ML VIAL.NEB INH PRN (22:30)
[2022-12-05] MEDS ORDERED: IPRATROPIUM BROM 0.5 MG/2.5 ML VIAL.NEB (ATROVENT) INH PRN (22:30)
[2022-12-06] VITALS (10 sets, daily range): BP systolic 93–116; PULSE 65–90; RESP 16–20; TEMP 97.1–99.4; O2SAT 94–98
[2022-12-06] MEDS: OXYCODONE/ACETAMINOPHEN 5-325 TABLET PO PRN ×3 (00:35→18:12)
[2022-12-06 05:59] LABS: BASOPHILS % (AUTO) 0.7 % (0.0-2.0); EOSINOPHILS # (AUTO) 0.2 K/uL (0.0-0.4); EOSINOPHILS % (AUTO) 2.6 % (0.0-4.0); HEMATOCRIT 27.4 % (36-54); HEMOGLOBIN 9.3 g/dL (14.0-18.0); LYMPHOCYTES # (AUTO) 0.9 K/uL (1.0-5.5); LYMPHOCYTES % (AUTO) 14.7 % (20.5-51.5); MEAN CORPUSCULAR HEMOGLOBIN 31 pg (27-31); MEAN CORPUSCULAR HGB CONC 34 % (32-36); MEAN CORPUSCULAR VOLUME 93 fL (79.0-98.0); MONOCYTES # (AUTO) 0.6 K/uL (0.0-1.0); MONOCYTES % (AUTO) 10.3 % (1.7-9.3); NEUTROPHILS # (AUTO) 4.4 K/uL (1.8-7.7); NEUTROPHILS % (AUTO) 71.7 % (40.0-70.0); PLATELET COUNT (AUTO) 130 K/uL (130-430); RED BLOOD CELL COUNT(AUTO) 2.94 MIL/uL (4.2-6.2); RED CELL DISTRIBUTION WIDTH 15.8 % (9.0-15.0); WHITE BLOOD COUNT (AUTO) 6.1 K/uL (4.8-10.8)
[2022-12-06 06:35] LABS: ALANINE AMINOTRANSFERASE 9 U/L (12-78); ANION GAP 5 (5-15); ASPARTATE AMINOTRANSFERASE 16 U/L (10-37); C-REACTIVE PROTEIN QUANT 5.1 mg/dL (0-0.5); CALCIUM 8.2 mg/dL (8.4-11.0); CHLORIDE 102 mmol/L (98-107); CREATININE 1.38 mg/dL (0.55-1.30); GLUCOSE 107 mg/dL (70-99); TOTAL BILIRUBIN 0.6 mg/dL (0.0-1.0); UREA NITROGEN, BLOOD 40 mg/dL (8-21)
[2022-12-06 07:00] LABS: ERYTHROCYTE SEDIMENTATION RATE 29 MM/HR (0-15)
[2022-12-06 07:41] LABS: PHOSPHORUS 3.1 mg/dL (2.7-4.5)
[2022-12-06] MEDS: CEFEPIME 1 GM in D5W 50 ML IV SCH ×2 (08:55→21:00)
[2022-12-06] MEDS: POTASSIUM CHLORIDE 20 MEQ TAB.PRT.SR PO SCH (09:57)
[2022-12-06] MEDS: PANTOPRAZOLE SODIUM 40 MG TAB PO SCH (09:58)
[2022-12-06] MEDS: METOPROLOL SUCCINATE 25 MG TAB.SR.24H (TOPROL XL) PO SCH (09:58)
[2022-12-06] MEDS: SPIRONOLACTONE 25 MG TABLET (ALDACTONE) PO SCH (09:59)
[2022-12-06] MEDS: FUROSEMIDE 40 MG TABLET PO SCH (09:59)
[2022-12-06] MEDS: SILDENAFIL CITRATE 20 MG TABLET PO SCH ×4 (09:59→21:11)
[2022-12-06] MEDS: amLODIPine BESYLATE 5 MG TABLET PO SCH (11:12)
[2022-12-06] MEDS: CLOTRIMAZOLE/BETAMET DIPROP 15 GM TUBE TP SCH (14:04)
[2022-12-06] MEDS ORDERED: AMMONIUM LACTATE 226 GM LOTION TP ONE (15:45)
[2022-12-06] MEDS: AMMONIUM LACTATE 226 GM LOTION TP SCH (21:00)
[2022-12-07] VITALS (7 sets, daily range): BP systolic 112–152; PULSE 79–103; RESP 16–18; TEMP 96.6–99; O2SAT 94–96
[2022-12-07] MEDS: PANTOPRAZOLE SODIUM 40 MG TAB PO SCH (08:59)
[2022-12-07] MEDS: CEFEPIME 1 GM in D5W 50 ML IV SCH ×2 (08:59→21:10)
[2022-12-07] MEDS: POTASSIUM CHLORIDE 20 MEQ TAB.PRT.SR PO SCH (09:00)
[2022-12-07] MEDS: METOPROLOL SUCCINATE 25 MG TAB.SR.24H (TOPROL XL) PO SCH (09:01)
[2022-12-07] MEDS: SILDENAFIL CITRATE 20 MG TABLET PO SCH ×3 (09:02→21:10)
[2022-12-07] MEDS: SPIRONOLACTONE 25 MG TABLET (ALDACTONE) PO SCH (09:02)
[2022-12-07] MEDS: FUROSEMIDE 40 MG TABLET PO SCH (09:03)
[2022-12-07] MEDS: AMMONIUM LACTATE 226 GM LOTION TP SCH ×2 (09:04→21:10)
[2022-12-07] MEDS: OXYCODONE/ACETAMINOPHEN 5-325 TABLET PO PRN (09:16)
[2022-12-07] MEDS: CLOTRIMAZOLE/BETAMET DIPROP 15 GM TUBE TP SCH (09:17)
[2022-12-07] MEDS: HYDROcodone/ACETAMIN 5-325 MG TAB (NORCO/ VICODIN) PO PRN ×2 (15:12→21:51)
[2022-12-08] VITALS (7 sets, daily range): BP systolic 113–119; PULSE 69–84; RESP 16–18; TEMP 97.3–98.5; O2SAT 93–96
[2022-12-08 06:11] LABS: BASOPHILS % (AUTO) 0.7 % (0.0-2.0); EOSINOPHILS # (AUTO) 0.2 K/uL (0.0-0.4); HEMATOCRIT 26.6 % (36-54); HEMOGLOBIN 9.2 g/dL (14.0-18.0); LYMPHOCYTES % (AUTO) 15.3 % (20.5-51.5); MEAN CORPUSCULAR HEMOGLOBIN 32 pg (27-31); MEAN CORPUSCULAR HGB CONC 34 % (32-36); MEAN CORPUSCULAR VOLUME 93 fL (79.0-98.0); MONOCYTES # (AUTO) 0.5 K/uL (0.0-1.0); MONOCYTES % (AUTO) 8.8 % (1.7-9.3); NEUTROPHILS # (AUTO) 4.5 K/uL (1.8-7.7); NEUTROPHILS % (AUTO) 71.2 % (40.0-70.0); PLATELET COUNT (AUTO) 118 K/uL (130-430); RED BLOOD CELL COUNT(AUTO) 2.88 MIL/uL (4.2-6.2); RED CELL DISTRIBUTION WIDTH 15.8 % (9.0-15.0); WHITE BLOOD COUNT (AUTO) 6.3 K/uL (4.8-10.8)
[2022-12-08 06:17] LABS: ANION GAP 6 (5-15); CALCIUM 8.2 mg/dL (8.4-11.0); CHLORIDE 101 mmol/L (98-107); GLUCOSE 100 mg/dL (70-99); UREA NITROGEN, BLOOD 45 mg/dL (8-21)
[2022-12-08] MEDS: CEFEPIME 1 GM in D5W 50 ML IV SCH (09:37)
[2022-12-08] MEDS: HYDROcodone/ACETAMIN 5-325 MG TAB (NORCO/ VICODIN) PO PRN ×2 (09:43→15:37)
[2022-12-08] MEDS: POTASSIUM CHLORIDE 20 MEQ TAB.PRT.SR PO SCH (09:44)
[2022-12-08] MEDS: PANTOPRAZOLE SODIUM 40 MG TAB PO SCH (09:44)
[2022-12-08] MEDS: FUROSEMIDE 40 MG TABLET PO SCH (09:44)
[2022-12-08] MEDS: METOPROLOL SUCCINATE 25 MG TAB.SR.24H (TOPROL XL) PO SCH (09:45)
[2022-12-08] MEDS: SILDENAFIL CITRATE 20 MG TABLET PO SCH ×2 (09:45→15:14)
[2022-12-08] MEDS: SPIRONOLACTONE 25 MG TABLET (ALDACTONE) PO SCH (09:45)
[2022-12-08] MEDS: CLOTRIMAZOLE/BETAMET DIPROP 15 GM TUBE TP SCH (11:19)
[2022-12-08] MEDS: AMMONIUM LACTATE 226 GM LOTION TP SCH (11:19)
[2022-12-08] MEDS ORDERED: DOXY100C PO (13:45)
== END 2022-12-08 17:35 | disposition home health service (06) | DRG 871 ==
LOC: SED 16:07 → SMU 20:17
PROVIDERS: ADMIT Preventive Medicine Preventive Medicine/Occupational Environmental Medicine; ATTEND Specialist
DX: A41.9 Sepsis, unspecified organism (principal); E43 Unspecified severe protein-calorie malnutrition; N18.6 End stage renal disease; N17.0 Acute kidney failure with tubular necrosis; L03.116 Cellulitis of left lower limb; E87.1 Hypo-osmolality and hyponatremia; L03.115 Cellulitis of right lower limb; I13.2 Hypertensive heart and chronic kidney disease with heart failure and with stage 5 chronic kidney disease, or end stage renal disease; K74.60 Unspecified cirrhosis of liver; I25.10 Atherosclerotic heart disease of native coronary artery without angina pectoris; E78.5 Hyperlipidemia, unspecified; K21.9 Gastro-esophageal reflux disease without esophagitis; D64.9 Anemia, unspecified; R73.9 Hyperglycemia, unspecified; B19.20 Unspecified viral hepatitis C without hepatic coma; E88.09 Other disorders of plasma-protein metabolism, not elsewhere classified; I50.9 Heart failure, unspecified; Z87.891 Personal history of nicotine dependence
CPT/HCPCS: 36415; 73590-TC; 80048; 80053; 83605; 83735; 84100; 85025; 85651-TC; 86140; 87040; 87081; 93971; 94640; 94760; 96365; 96375; 97110-GP; 97116-GP; 97163-GP; 97530-GP; 99285; J0692; J1940; J2405; J3370; J7060; J7613